=== PATIENT | male | born 1975 | race Caucasian/White ===

== ENCOUNTER 2022-01-30 01:41 | Inpatient (IN) | payer OTHER, SELFPAY ==
[2022-01-30 01:46] VITALS: BP 156/97; PULSE 82; RESP 18; TEMP 36.8; O2SAT 98; BMI 25.8
[2022-01-30 02:22] LABS: Appearance Urine CLEAR; Color Urine YELLOW; Glucose Urine UA NEG (NEG); Leukocyte Esterase Urine NEG (NEG); Nitrite Urine NEG (NEG); Urine Blood NEG (NEG); Urine Ketones NEG (NEG); Urine Protein NEG (NEG-TRACE)
[2022-01-30 02:38] LABS: COVID-19 Test Negative (Negative)
[2022-01-30 02:46] LABS: Amphetamine Screen Urine Not Detected (Not Detect); Barbiturates, Urine Not Detected (Not Detect); Benzodiazepines Screen Urine Not Detected (Not Detect); Cannabinoid Screen Urine POSITIVE (Not Detect); Cocaine Screen Urine POSITIVE (Not Detect); Fentanyl, urine POSITIVE (Not Detect); Opiate Screen Urine Not Detected (Not Detect); Phencyclidine Screen Urine Not Detected (Not Detect)
--- NOTE | 2022-01-30 03:54 | ED_ITS ---
HPI - Psych General Chief Complaint: Psychiatric Symptoms Stated Complaint: CRISIS Time Seen by Provider: 01/30/22 03:54 Source: patient Mode of arrival: EMS History of Present Illness HPI Narrative: 46-year-old male with history depression and recently admitted to [facility] now presents via ambulance with complaints of depression and feelings of hopelessness but denies suicidal or homicidal ideation and also denies any AVH. Currently patient has no acute medical complaints. Related Data Allergies Allergy/AdvReac Type Severity Reaction Status Date / Time trazodone Allergy Intermediate Rash Verified 01/30/22 01:55 Review of Systems Review of Systems: Pertinent positives and negatives as stated in HPI 10 point review of systems is otherwise negative. PMFSH Past Medical History Source: nursing notes reviewed Social History Social History Advance Directives: No Physical Exam Vital Signs: Vital Signs: Last Vital Signs Temp 98.3 F 01/30/22 01:46 Pulse 82 01/30/22 01:46 Resp 18 01/30/22 01:46 BP 156/97 H 01/30/22 01:46 Pulse Ox 98 01/30/22 01:46 BMI result Body Mass Index 25.8 VITAL SIGNS: Reviewed. GENERAL: Well developed, well nourished, in no acute distress. HEAD: Normocephalic/atraumatic EYES: PERRLA, EOMI EARS: Ext canals without abnormality OROPHARYNX: no oral lesions noted, posterior pharynx clear LUNGS: Normal breath sounds. No adventitious sounds or accessory muscle use. SpO2<98> CARDIOVASCULAR: Regular rate and rhythm without noted murmurs ABDOMEN: Soft, non-tender, non-distended with bowel sounds. MUSCULOSKELETAL: No tenderness, deformities, or effusions noted on gross inspection. EXTREMITIES: No cyanosis, clubbing or edema. SKIN: Inspection of the skin reveals no rashes NEUROLOGIC: Alert and oriented x 4. Strength and sensation to light touch were grossly intact x 4, cranial nerves 2-12 are grossly intact. PSYCH: Depressive affect, calm Course Course Course Narrative: 46-year-old male with history and clinical presentation of depression and currently presents with same. No SI/HI and patient is otherwise medically cleared for further evaluation by the crisis team. Reevaluation(s) Reevaluation #1: Patient placed in physician observation because the patient needed more time for evaluation by the crisis team. At the time observation was started the patient's vital signs were stable, patient is alert and oriented, neuro: Nonfocal, CV RRR, lungs clear Time: 04:55 MDM - Psych Lab Data Labs: Lab Results 01/30/22 01/30/22 01/30/22 Range/Units 02:03 02:12 02:12 Urine Color YELLOW Urine Appearance CLEAR Urine pH 7.0 (5.0-8.0) Ur Specific [place] 1.020 (1.005-1.025) Urine Protein NEG (NEG-TRACE) MG/DL Urine Glucose (UA) NEG (NEG) MG/DL Urine Ketones NEG (NEG) MG/DL Urine Blood NEG (NEG) Urine Nitrite NEG (NEG) Ur Leukocyte Esterase NEG (NEG) Urine Opiates Screen Not Detected (Not Detect) Urine Fentanyl Screen POSITIVE H (Not Detect) Ur Barbiturates Screen Not Detected (Not Detect) Ur Phencyclidine Scrn Not Detected (Not Detect) Ur Amphetamines Screen Not Detected (Not Detect) U Benzodiazepines Scrn Not Detected (Not Detect) Urine Cocaine Screen POSITIVE H (Not Detect) U Marijuana (THC) Screen POSITIVE H (Not Detect) COVID-19 (JENNIFER) Negative (Negative) COVID-19 Clin Com See Note Discharge Plan Discharge Clinical Impression: Depression Patient Disposition: Still a Patient
--- NOTE | 2022-01-30 06:14 | PC.NURSE ---
Patient stayed up until 334 watching TV, appears sleeping since 334, no distress observed/reported, [facility]N referral completed/confirmed, pending evaluation in the morning, VSS, will continue to monitor
--- NOTE | 2022-01-30 07:07 | PC.NURSE ---
patient appears to remain asleep at present respirations are even and unlabored patient appears in no distress
--- NOTE | 2022-01-30 10:09 | PC.NURSE ---
verifies clients methadone dose at [facility]. have tried three times to reach [facility] cannot get through to the psych unit. will continues to call.
[2022-01-30] MEDS: methADONE HCl 20 MG/2 ML ORAL.CONC 115 MG PO (11:14)
--- NOTE | 2022-01-30 15:00 | MHC.CARE ---
Patient evaluated by The CARE Team, he would benefit from inpatient psychiatric hospitalization, is voluntary for treatment. ED providers updated
[2022-01-30] MEDS: Melatonin 3 MG TABLET 9 MG PO (20:29)
[2022-01-30] MEDS: Mirtazapine 15 MG TABLET PO (20:29)
--- NOTE | 2022-01-31 | ECG_ITS ---
Test Reason : MED CLEARANCE Blood Pressure : / mmHG Vent. Rate : 054 BPM Atrial Rate : 054 BPM P-R Int : 140 ms QRS Dur : 088 ms QT Int : 452 ms P-R-T Axes : 051 -09 009 degrees QTc Int : 428 ms Sinus bradycardia Otherwise normal ECG No previous ECGs available Referred By: Patricia Wallace Electronically Signed By:PAM WATTERS MD
--- NOTE | 2022-01-31 06:06 | PC.NURSE ---
Patient slept though the night, no distress observed/reported, behavior non concerning at this time, medication compliant, disposition per care team is voluntary Inpatient Bed search but due to insurance issues patient will be reassessed by care team in the morning, VSS, will continue to monitor.
[2022-01-31 06:36] VITALS: BP 136/79; PULSE 56; TEMP 36.6; O2SAT 98
--- NOTE | 2022-01-31 07:06 | PC.NURSE ---
patient appears to remain asleep at present respirations are even and unlabored patient appears in no distress
[2022-01-31] MEDS: ARIPiprazole 2 MG TABLET PO (07:54)
[2022-01-31] MEDS: methADONE HCl 20 MG/2 ML ORAL.CONC 115 MG PO (07:55)
--- NOTE | 2022-01-31 09:15 | MHC.CARE ---
CARE Team contacts Arlette to cancel his 1530 appointment for this date due to his inpatient admission. [facility] advises CARE Team to have pt contact them to reschedule the appointment. Arlette .
[2022-01-31] MEDS: hydrOXYzine HCL 50 MG TABLET PO ×2 (10:19→17:12)
[2022-01-31] MEDS: Nicotine Polacrilex 2 MG GUM BUCCAL ×2 (11:29→17:13)
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
[2022-01-31] MEDS: Mirtazapine 30 MG TABLET PO (20:02)
[2022-01-31] MEDS: Melatonin 3 MG TABLET 9 MG PO (20:02)
[2022-01-31 20:24] VITALS: BP 135/64; PULSE 69; RESP 17; TEMP 36.3; O2SAT 97
[2022-02-01 06:00] VITALS: BP 134/66; PULSE 62; RESP 18; TEMP 36.5; O2SAT 98
[2022-02-01] MEDS: ARIPiprazole 2 MG TABLET PO (08:22)
[2022-02-01] MEDS: methADONE HCl 20 MG/2 ML ORAL.CONC 115 MG PO (08:22)
[2022-02-01] MEDS: hydrOXYzine HCL 50 MG TABLET PO ×2 (08:22→12:37)
[2022-02-01 08:34] LABS: Estimated Average Glucose 105 mg/dL; Hemoglobin A1c % 5.3 %
[2022-02-01 08:40] LABS: Alanine Aminotransferase 87 U/L (0-40); Albumin Level 3.9 g/dL (3.5-5.0); Alkaline Phosphatase 84 U/L (39-117); Anion Gap 12 (12-20); Aspartate Amino Transferase 49 U/L (5-37); Bilirubin Total 0.6 mg/dL (0.0-1.0); Blood Urea Nitrogen 17 mg/dL (9-16); Calcium 9.5 mg/dL (8.4-10.2); Carbon Dioxide 31 mmol/L (22-29); Chloride 102 mmol/L (96-108); Cholesterol 185 mg/dL; Creatinine Clr Calc Pharmacy 100.3; Estimated Glomerular Filt Rate > 60; Glucose Fasting 76 mg/dL (60-99); HDL Cholesterol 43 mg/dL; LDL Cholesterol Calculated 117 mg/dl; Magnesium 2.2 mg/dL (1.6-2.6); Potassium 4.7 mmol/L (3.3-5.1); Sodium 140 mmol/L (135-145); Total Protein 6.5 g/dL (6.5-8.0); Triglycerides 127 mg/dL
[2022-02-01 09:06] LABS: Free T4 (Free Thyroxine) 0.97 ng/dL (0.71-1.85); Thyroid Stimulating Hormone 2.32 uIU/mL (0.32-4.0)
--- NOTE | 2022-02-01 10:32 | HO.PSYCHPN ---
Subjective Subjective Date of Service: 02/01/22 Reason For Visit: Depression Opiate Use D/O Methadone Maintenance Pt Interim History: Patient reports that he is very anxious. But overall feels a little better than on admission and denies any SI. He is grateful that his mirtazapine was increased. He says the Trileptal helped him in the past and would like to restarted now. Patient asks for clonazepam 1 mg at bedtime since he says has a very hard time sleeping. Patient said that he will fall asleep but at some point suddenly wake up, often feeling sweaty and anxious, though he does not remember any specific nightmares. Patient shared a very long history of trauma dating back to childhood which is clearly severe. Patient says he used to be on clonazepam 4 mg daily but got off it 5 years ago. He has not been on medication for the past several years just using cannabis instead. Patient was at 1st upset that bid writer wanted to find alternative to clonazepam however he was able to calm down and listen to bid writer's explanation of how clonazepam can worsen and prolonged PTSD symptoms. It seemed to be meaningful to patient that bid writer's perspective was independent of patient's history of substance abuse and that this would be bid writer's opinion on treatment even for someone who had never struggled with substance abuse in their life. Patient agreed to trying prazosin at bedtime for nightmares and bid writer agreed to added clonazepam 0.5 mg p.r.n. while patient was on the unit however explained that patient would not provide outpt scripts for this since clonazepam is a temporary measure being used while his other medications are taking time to become therapeutic. Patient agreed to this and understood that given his substance abuse history it will be important for him to develop a relationship with an outpatient provider Mental Status Exam Mental Status Exam Narrative: Pt is alert and oriented; behavior is irritable; dressed in casual attire, well groomed; mood is described as little better....anxious and affect congruent, angry or tearful at times; eye contact appropriate; Speech is a little fast, but normal volume and prosody and not pressured; some psychomotor agitation present; thought process is organized and goal directed; Thought content is on tx; otherwise pertinent to relevant topics and without any delusional content, paranoid ideations or grandiosity; denies any SI/HI. There is no evidence of perceptual disturbance and he denies AVH. Patients insight and judgment are impaired. Diagnostics Vital Signs (24Hr): Vital Signs - 24 hr 01/31/22 20:24 02/01/22 06:00 Temperature 97.3 F 97.7 F Pulse Rate 69 62 Respiratory Rate 17 18 Blood Pressure 135/64 134/66 Pulse Oximetry 97 98 BMI result Body Mass Index 25.8 Labs Results: 02/01/22 07:44 Labs: Laboratory Results - last 48 hr 02/01/22 02/01/22 07:44 07:44 Sodium 140 Potassium 4.7 Chloride 102 Carbon Dioxide 31 H Anion Gap 12 BUN 17 H Creatinine 0.91 Estim Creat Clear Calc 100.3 Estimated GFR > 60 Fasting Glucose 76 Estimat Average Glucose 105 Hemoglobin A1c % 5.3 Calcium 9.5 Magnesium 2.2 Total Bilirubin 0.6 AST 49 H ALT 87 H Alkaline Phosphatase 84 Total Protein 6.5 Albumin 3.9 Triglycerides 127 Cholesterol 185 LDL Cholesterol, Calc 117 HDL Cholesterol 43 TSH 2.32 Free T4 0.97 Medications Medications Current Medications Acetaminophen (Acetaminophen 325 Mg Tablet) 650 mg PO Q6H PRN PRN Reason: Headache/Pain Mild Scale (1-3) Al Hydroxide/Mg Hydroxide (Magnesium Hydrox/Alum Hydrox 30 Ml Oral.Susp) 30 ml PO Q6H PRN PRN Reason: Heartburn/Nausea Aripiprazole (Aripiprazole 2 Mg Tablet) 2 mg PO DAILY [facility] Last Admin: 02/01/22 08:22 Dose: 2 mg Documented by: Hydroxyzine HCl (Hydroxyzine Hcl 50 Mg Tablet) 50 mg PO TID PRN PRN Reason: Anxiety Last Admin: 02/01/22 08:22 Dose: 50 mg Documented by: Magnesium Hydroxide (Milk Of Magnesia 30 Ml Oral.Susp) 30 ml PO DAILY PRN PRN Reason: Constipation Melatonin (Melatonin 3 Mg Tablet) 9 mg PO BEDTIME [facility] Last Admin: 01/31/22 20:02 Dose: 9 mg Documented by: Methadone HCl (Methadone Hcl 20 Mg/2 Ml Oral.Conc) 115 mg PO DAILY [facility] Last Admin: 02/01/22 08:22 Dose: 115 mg Documented by: Mirtazapine (Mirtazapine 30 Mg Tablet) 30 mg PO BEDTIME [facility] Last Admin: 01/31/22 20:02 Dose: 30 mg Documented by: Nicotine Polacrilex (Nicotine Polacrilex 2 Mg Gum) 2 mg BUCCAL Q2H PRN PRN Reason: Nicotine Cravings Allergies Allergies Allergy/AdvReac Type Severity Reaction Status Date / Time trazodone Allergy Intermediate Rash Verified 01/30/22 01:55 Assessment & Plan Assessment & Plan (1) Cocaine use disorder: Status: Acute Code(s): F14.10 - Cocaine abuse, uncomplicated (2) Post traumatic stress disorder (PTSD): Status: Acute Code(s): F43.10 - Post-traumatic stress disorder, unspecified Plan Deng is a 46 y.o. male who carries a dx of PTSD, polysubstance abuse, and hx of intermittent explosive disorder. He presented to [facility] on 01/30/22 reporting increased depression, recently admitted to [facility] on 01/24/22. Per crisis eval, pt made passive SI statements during assessment. Precipitating fx include that pt is currently homeless, had a recent breakup with gf, and has hx of frequent relapses on crack cocaine. He has been non-adherent on medication x 2 days. Utox positive for cocaine, fentanyl, and cannabis. EKG wnl, Qtc 428. -placed addiction consult, as pt would like to increase his methadone dose for cravings. Pt states ?what worked really well is klonopin,? asks for a low dose at bedtime. Pt is interested in obtaining residential LEYDI treatment. He is also interested in tx for Hep C. 02/01 patient reports much anxiety; wants clonazepam at bedtime only however is open to trying prazosin 1st to see if that helps with sleep interrupted by history of trauma, which is severe. Will also start Trileptal since he reports this has helped him in the past. Plan: . cv Start prazosin 1 mg q.h.s. for nightmares Start Trileptal 300 mg b.i.d. Will continue Abilify 2 mg daily was added at last hospitalization last week increased remeron to 30mg qhs Packaging Machine Operator agreed to clonazepam 0.5 mg p.r.n. b.i.d. since patient reports much anxiety and bid writer acknowledges that it will take some time for his medications to become therapeutic; however bid writer explained the risks/side effects of benzos and that this patient would not be continued on discharge to which patient understood and accepts. Q15 min safety checks, CV Monitor response to medications. Monitor for safety in the milieu. Discharge on stabilization. Patient seen. Chart reviewed. Discussed with team. Obtain collateral contact info?as needed I spent minutes with the patient and/or on the patient floor today, greater than?50% of which was spent counseling/coordinating care. Patient educated on: diagnosis, medication risk/benefits, substance abuse and therapeutic strategies Reason for contiued inpatient stay Substantial Risk for: rapid decompensation
[2022-02-01 12:36] LABS: Folate 13.6 ng/mL (> or = 4.0); Vitamin B12 503 pg/mL (200-900)
[2022-02-01] MEDS: Nicotine Polacrilex 2 MG GUM BUCCAL (14:05)
[2022-02-01] MEDS: clonazePAM 0.5 MG TABLET PO ×2 (16:09→16:58)
[2022-02-01 18:00] VITALS: BP 120/69; PULSE 92; RESP 16; TEMP 36; O2SAT 97
[2022-02-01] MEDS: Melatonin 3 MG TABLET 9 MG PO (20:30)
[2022-02-01] MEDS: Mirtazapine 30 MG TABLET PO (20:32)
[2022-02-01] MEDS: OXcarbazepine 300 MG TABLET PO (20:33)
[2022-02-01] MEDS: Prazosin HCL 1 MG CAPSULE PO (20:33)
[2022-02-02 06:00] VITALS: BP 136/81; PULSE 66; RESP 16; TEMP 36.2; O2SAT 99
[2022-02-02] MEDS: ARIPiprazole 2 MG TABLET PO (08:33)
[2022-02-02] MEDS: methADONE HCl 20 MG/2 ML ORAL.CONC 115 MG PO (08:33)
[2022-02-02] MEDS: Nicotine Polacrilex 2 MG GUM BUCCAL ×2 (08:33→15:20)
[2022-02-02] MEDS: OXcarbazepine 300 MG TABLET PO ×2 (08:33→19:48)
[2022-02-02] MEDS: clonazePAM 0.5 MG TABLET PO ×2 (09:54→19:47)
[2022-02-02] MEDS: hydrOXYzine HCL 50 MG TABLET PO ×3 (09:54→19:47)
[2022-02-02 18:00] VITALS: BP 119/68; PULSE 85; RESP 16; TEMP 36.4; O2SAT 98
[2022-02-02] MEDS: Melatonin 3 MG TABLET 9 MG PO (19:47)
[2022-02-02] MEDS: Mirtazapine 30 MG TABLET PO (19:47)
[2022-02-02] MEDS: Prazosin HCL 1 MG CAPSULE PO (19:48)
--- NOTE | 2022-02-02 23:21 | HO.PSYCHPN ---
Subjective Subjective Date of Service: 02/02/22 Reason For Visit: Depression Opiate Use D/O Methadone Maintenance Pt Interim History: Patient reports that his mood and anxiety are better. He says that he slept well on the prazosin last night and did not wake up suddenly from sleep, feeling much better rested. He shared that he was earlier thinking he should increase his methadone but says that was just to help his mood and now that he is feeling better does not want to increase it any further. Patient denies any SI. Furnace Room Supervisor discussed his history of sobriety and patient said that he was sober for about 2 and half years. Resist this past month when he relapsed, citing psychosocial stressors such as breaking up with his girlfriend and quitting cannabis. Patient feels that medications are working at current doses and does not want them changed. He does want to get back into therapy post discharge saying that he had been in therapy in the past which he found very helpful. Mental Status Exam Mental Status Exam Narrative: Pt is alert and oriented; behavior is irritable; dressed in casual attire, well groomed; mood is described as better and affect congruent, brighter, calmer; eye contact appropriate; Speech with normal rate, volume and prosody and not pressured; no psychomotor agitation present; thought process is organized and goal directed; Thought content is on tx; otherwise pertinent to relevant topics and without any delusional content, paranoid ideations or grandiosity; denies any SI/HI. There is no evidence of perceptual disturbance and he denies AVH.? Patients insight and judgment are impaired but improving Diagnostics Vital Signs (24Hr): Vital Signs - 24 hr 02/02/22 06:00 Temperature 97.2 F Pulse Rate 66 Respiratory Rate 16 Blood Pressure 136/81 Pulse Oximetry 99 BMI result Body Mass Index 25.8 Labs Results: 02/01/22 07:44 Labs: Laboratory Results - last 48 hr 02/01/22 02/01/22 02/01/22 07:44 07:44 07:44 Sodium 140 Potassium 4.7 Chloride 102 Carbon Dioxide 31 H Anion Gap 12 BUN 17 H Creatinine 0.91 Estim Creat Clear Calc 100.3 Estimated GFR > 60 Fasting Glucose 76 Estimat Average Glucose 105 Hemoglobin A1c % 5.3 Calcium 9.5 Magnesium 2.2 Total Bilirubin 0.6 AST 49 H ALT 87 H Alkaline Phosphatase 84 Total Protein 6.5 Albumin 3.9 Triglycerides 127 Cholesterol 185 LDL Cholesterol, Calc 117 HDL Cholesterol 43 Vitamin B12 503 Folate 13.6 TSH 2.32 Free T4 0.97 Medications Medications Current Medications Acetaminophen (Acetaminophen 325 Mg Tablet) 650 mg PO Q6H PRN PRN Reason: Headache/Pain Mild Scale (1-3) Al Hydroxide/Mg Hydroxide (Magnesium Hydrox/Alum Hydrox 30 Ml Oral.Susp) 30 ml PO Q6H PRN PRN Reason: Heartburn/Nausea Aripiprazole (Aripiprazole 2 Mg Tablet) 2 mg PO DAILY [facility] Last Admin: 02/02/22 08:33 Dose: 2 mg Documented by: Clonazepam (Clonazepam 0.5 Mg Tablet) 0.5 mg PO BID PRN PRN Reason: Anxiety Last Admin: 02/02/22 19:47 Dose: 0.5 mg Documented by: Hydroxyzine HCl (Hydroxyzine Hcl 50 Mg Tablet) 50 mg PO TID PRN PRN Reason: Anxiety Last Admin: 02/02/22 19:47 Dose: 50 mg Documented by: Magnesium Hydroxide (Milk Of Magnesia 30 Ml Oral.Susp) 30 ml PO DAILY PRN PRN Reason: Constipation Melatonin (Melatonin 3 Mg Tablet) 9 mg PO BEDTIME TITO Last Admin: 02/02/22 19:47 Dose: 9 mg Documented by: Methadone HCl (Methadone Hcl 20 Mg/2 Ml Oral.Conc) 115 mg PO DAILY [facility] Last Admin: 02/02/22 08:33 Dose: 115 mg Documented by: Mirtazapine (Mirtazapine 30 Mg Tablet) 30 mg PO BEDTIME TITO Last Admin: 02/02/22 19:47 Dose: 30 mg Documented by: Nicotine Polacrilex (Nicotine Polacrilex 2 Mg Gum) 2 mg BUCCAL Q2H PRN PRN Reason: Nicotine Cravings Last Admin: 02/02/22 15:20 Dose: 2 mg Documented by: Oxcarbazepine (Oxcarbazepine 300 Mg Tablet) 300 mg PO BID [facility] Last Admin: 02/02/22 19:48 Dose: 300 mg Documented by: Prazosin HCl (Prazosin Hcl 1 Mg Capsule) 1 mg PO BEDTIME TITO; Protocol Last Admin: 02/02/22 19:48 Dose: 1 mg Documented by: Allergies Allergies Allergy/AdvReac Type Severity Reaction Status Date / Time trazodone AdvReac Intermediate Priaprism Verified 02/01/22 14:41 Assessment & Plan Assessment & Plan (1) Cocaine use disorder: Status: Acute Code(s): F14.10 - Cocaine abuse, uncomplicated (2) Post traumatic stress disorder (PTSD): Status: Acute Code(s): F43.10 - Post-traumatic stress disorder, unspecified Plan Deng is a 46 y.o. male who carries a dx of PTSD, polysubstance abuse, and hx of intermittent explosive disorder. He presented to [facility] on 01/30/22 reporting increased depression, recently admitted to [facility] on 01/24/22. Per crisis eval, pt made passive SI statements during assessment. Precipitating fx include that pt is currently homeless, had a recent breakup with gf, and has hx of frequent relapses on crack cocaine. He has been non-adherent on medication x 2 days. Utox positive for cocaine, fentanyl, and cannabis. EKG wnl, Qtc 428. -placed addiction consult, as pt would like to increase his methadone dose for cravings. Pt states ?what worked really well is klonopin,? asks for a low dose at bedtime. Pt is interested in obtaining [facility] treatment. He is also interested in tx for Hep C. 02/01 patient reports much anxiety; wants clonazepam at bedtime only however is open to trying prazosin 1st to see if that helps with sleep interrupted by history of trauma, which is severe. Will also start Trileptal since he reports this has helped him in the past. 02/02 Patient reports mood and anxiety have improved; denies any SI. Patient says he also slept better with prazosin and did not wake up suddenly or diaphoretic which has frequently happened in the past Plan: . cv Continue prazosin 1 mg q.h.s. for nightmares; has helped improve sleep ContinueTrileptal 300 mg b.i.d. continue Abilify 2 mg daily was added at last hospitalization last week Continueremeron to 30mg qhs (increased on admission) Furnace Room Supervisor agreed to clonazepam 0.5 mg p.r.n. b.i.d. since patient reports much anxiety and advertising copy writer acknowledges that it will take some time for his medications to become therapeutic; however advertising copy writer explained the risks/side effects of benzos and that this patient would not be continued on discharge to which patient understood and accepts. Q15 min safety checks, CV Monitor response to medications. Monitor for safety in the milieu. Discharge on stabilization. Patient seen. Chart reviewed. Discussed with team. Obtain collateral contact info?as needed I spent minutes with the patient and/or on the patient floor today, greater than?50% of which was spent counseling/coordinating care. Patient educated on: diagnosis, substance abuse and therapeutic strategies Informed Consent: understands Reason for contiued inpatient stay Substantial Risk for: rapid decompensation
[2022-02-03 06:00] VITALS: BP 131/59; PULSE 65; RESP 18; TEMP 36.7; O2SAT 98
[2022-02-03] MEDS: methADONE HCl 20 MG/2 ML ORAL.CONC 115 MG PO (08:28)
[2022-02-03] MEDS: OXcarbazepine 300 MG TABLET PO ×2 (08:28→20:27)
[2022-02-03] MEDS: ARIPiprazole 2 MG TABLET PO (08:28)
[2022-02-03] MEDS: hydrOXYzine HCL 50 MG TABLET PO ×2 (11:00→15:50)
[2022-02-03] MEDS: Nicotine Polacrilex 2 MG GUM BUCCAL (14:04)
[2022-02-03] MEDS: clonazePAM 0.5 MG TABLET PO ×4 (14:42→20:27)
[2022-02-03 18:00] VITALS: BP 125/83; PULSE 79; TEMP 36.3; O2SAT 98
[2022-02-03] MEDS: Mirtazapine 30 MG TABLET PO (20:26)
[2022-02-03] MEDS: Melatonin 3 MG TABLET 9 MG PO (20:27)
[2022-02-03] MEDS: Prazosin HCL 1 MG CAPSULE PO (20:27)
[2022-02-04 06:00] VITALS: BP 128/85; PULSE 72; RESP 18; TEMP 36.5; O2SAT 99
[2022-02-04] MEDS: methADONE HCl 20 MG/2 ML ORAL.CONC 115 MG PO (07:54)
[2022-02-04] MEDS: OXcarbazepine 300 MG TABLET PO ×3 (07:55→12:23)
[2022-02-04] MEDS: ARIPiprazole 2 MG TABLET PO ×2 (07:55→08:14)
--- NOTE | 2022-02-04 12:07 | P.PNPSI_ITS ---
Subjective Subjective Date of Service: 02/04/22 Reason For Visit: Depression Opiate Use D/O Methadone Maintenance Pt Interim History: pt reports his mood is better and remains w/out SI; he still has anxiety that seems to build and he says he eventually gets irritable which he's worried gets tranlated or perceived as aggression. Pt says he autumn by trying to busy himself, puzzles, groups and tries to hold off taking clonazepam, building his coping skill muscle...radio news writer reviewed risks/side-effects of Oxcarbazepine and he agrees to increase bedtime dose and says he was on 1200mg in the past. Review of abilify risks/side-effects prompted pt to ask it be discontinued. Pt says sleeping better on prazosin, no sudden wake ups. He was accidently given Adderall yesterday (med error), but found it calming. Discussed hx and pt was dx with ADD as child and was prescribed ritalin. Pt endorses numerous symptoms of adhd. Online Merchant agreed to trial of this med while on unit and pt understands that it will not be continued on discharge. Discussed aftercare; pt hopes for sober housing. Mental Status Exam Mental Status Exam Narrative: Pt is alert and oriented; behavior is irritable; dressed in casual attire, well groomed; mood is described as better and affect congruent, brighter, calmer; eye contact appropriate; Speech with normal rate, volume and prosody and not pressured; no psychomotor agitation present; thought process is organized and goal directed; Thought content is on tx; otherwise pertinent to relevant topics and without any delusional content, paranoid ideations or grandiosity; denies any SI/HI. There is no evidence of perceptual disturbance and he denies AVH.? Patients insight and judgment are fair. Diagnostics Vital Signs (24Hr): Vital Signs - 24 hr 02/03/22 18:00 02/04/22 06:00 Temperature 97.4 F 97.7 F Pulse Rate 79 72 Respiratory Rate 18 Blood Pressure 125/83 128/85 Pulse Oximetry 98 99 BMI result Body Mass Index 25.8 Labs Results: 02/01/22 07:44 Medications Medications Current Medications Acetaminophen (Acetaminophen 325 Mg Tablet) 650 mg PO Q6H PRN PRN Reason: Headache/Pain Mild Scale (1-3) Al Hydroxide/Mg Hydroxide (Magnesium Hydrox/Alum Hydrox 30 Ml Oral.Susp) 30 ml PO Q6H PRN PRN Reason: Heartburn/Nausea Amphetamine/Dextroamphetamine (Amphetamine Mixed Salts 10 Mg Tablet) 10 mg PO DAILY [facility] Clonazepam (Clonazepam 0.5 Mg Tablet) 0.5 mg PO BID PRN PRN Reason: Anxiety Last Admin: 02/03/22 20:27 Dose: 0.5 mg Documented by: Hydroxyzine HCl (Hydroxyzine Hcl 50 Mg Tablet) 50 mg PO TID PRN PRN Reason: Anxiety Last Admin: 02/03/22 15:50 Dose: 50 mg Documented by: Magnesium Hydroxide (Milk Of Magnesia 30 Ml Oral.Susp) 30 ml PO DAILY PRN PRN Reason: Constipation Melatonin (Melatonin 3 Mg Tablet) 9 mg PO BEDTIME TITO Last Admin: 02/03/22 20:27 Dose: 9 mg Documented by: Methadone HCl (Methadone Hcl 20 Mg/2 Ml Oral.Conc) 115 mg PO DAILY [facility] Last Admin: 02/04/22 07:54 Dose: 115 mg Documented by: Mirtazapine (Mirtazapine 30 Mg Tablet) 30 mg PO BEDTIME TITO Last Admin: 02/03/22 20:26 Dose: 30 mg Documented by: Nicotine Polacrilex (Nicotine Polacrilex 2 Mg Gum) 2 mg BUCCAL Q2H PRN PRN Reason: Nicotine Cravings Last Admin: 02/03/22 14:04 Dose: 2 mg Documented by: Oxcarbazepine (Oxcarbazepine 300 Mg Tablet) 300 mg PO DAILY [facility] Oxcarbazepine (Oxcarbazepine 300 Mg Tablet) 600 mg PO DAILY [facility] Prazosin HCl (Prazosin Hcl 1 Mg Capsule) 1 mg PO BEDTIME TITO; Protocol Last Admin: 02/03/22 20:27 Dose: 1 mg Documented by: Allergies Allergies Allergy/AdvReac Type Severity Reaction Status Date / Time trazodone AdvReac Intermediate Priaprism Verified 02/01/22 14:41 Assessment & Plan Assessment & Plan (1) Cocaine use disorder: Status: Acute Code(s): F14.10 - Cocaine abuse, uncomplicated (2) Post traumatic stress disorder (PTSD): Status: Acute Code(s): F43.10 - Post-traumatic stress disorder, unspecified Plan Deng is a 46 y.o. male who carries a dx of PTSD, polysubstance abuse, and hx of intermittent explosive disorder. He presented to [facility] on 01/30/22 reporting increased depression, recently admitted to [facility] on 01/24/22. Per crisis eval, pt made passive SI statements during assessment. Precipitating fx include that pt is currently homeless, had a recent breakup with gf, and has hx of frequent relapses on crack cocaine. He has been non-adherent on medication x 2 days. Utox positive for cocaine, fentanyl, and cannabis. EKG wnl, Qtc 428. -placed addiction consult, as pt would like to increase his methadone dose for cravings. Pt states ?what worked really well is klonopin,? asks for a low dose at bedtime. Pt is interested in obtaining senior living [facility] treatment. He is also interested in tx for Hep C. 02/01 patient reports much anxiety; wants clonazepam at bedtime only however is open to trying prazosin 1st to see if that helps with sleep interrupted by history of trauma, which is severe. Will also start Trileptal since he reports this has helped him in the past. 02/02 Patient reports mood and anxiety have improved; denies any SI. Patient says he also slept better with prazosin and did not wake up suddenly or diaphoretic which has frequently happened in the past -mood remains improved; still anxious and irritable so will increase trileptal Plan: . cv trial of Adderall; hx of ADHD; helps with impulsiveness which can reduce risk to relapse; will not give on discharge which pt accepts Continue prazosin 1 mg q.h.s. for nightmares; has helped improve sleep contninue Trileptal to 300 mg daily INcrease to Trileptal to 600mg qhs DC Abilify 2 mg daily does not like side-effect profile; low dose unlikely to make significantly clinical difference Continuer emeron to 30mg qhs (increased on admission) Online Merchant agreed to clonazepam 0.5 mg p.r.n. b.i.d. since patient reports much anx iety and radio news writer acknowledges that it will take some time for his medications to become therapeutic; however radio news writer explained the risks/side effects of benzos and that this patient would not be continued on discharge to which patient understood and accepts. Q15 min safety checks, CV Monitor response to medications. Monitor for safety in the milieu. Discharge on stabilization. Patient seen. Chart reviewed. Discussed with team. Obtain collateral contact info?as needed I spent minutes with the patient and/or on the patient floor today, greater than?50% of which was spent counseling/coordinating care. Patient educated on: diagnosis, medication risk/benefits, substance abuse and therapeutic strategies Informed Consent: understands Reason for contiued inpatient stay Substantial Risk for: med/psych decompensation
[2022-02-04] MEDS: Amphetamine Mixed Salts 10 MG TABLET PO (12:23)
[2022-02-04] MEDS: OXcarbazepine 300 MG TABLET 600 MG PO (12:24)
[2022-02-04] MEDS: clonazePAM 0.5 MG TABLET PO ×2 (12:30→20:32)
[2022-02-04 20:25] VITALS: BP 136/90; PULSE 89; TEMP 36.9; O2SAT 98
[2022-02-04] MEDS: Prazosin HCL 1 MG CAPSULE PO (20:31)
[2022-02-04] MEDS: Melatonin 3 MG TABLET 9 MG PO (20:31)
[2022-02-04] MEDS: Mirtazapine 30 MG TABLET PO (20:31)
[2022-02-05 06:00] VITALS: BP 126/84; PULSE 76; RESP 18; TEMP 36.6; O2SAT 98
[2022-02-05] MEDS: clonazePAM 0.5 MG TABLET PO ×2 (08:26→12:51)
[2022-02-05] MEDS: Amphetamine Mixed Salts 10 MG TABLET PO (08:27)
[2022-02-05] MEDS: methADONE HCl 20 MG/2 ML ORAL.CONC 115 MG PO (08:28)
[2022-02-05] MEDS: hydrOXYzine HCL 50 MG TABLET PO ×2 (08:28→12:51)
[2022-02-05 08:41] LABS: MANUAL DIFF FLAG NO
[2022-02-05 08:47] LABS: Basophils Absolute Auto 0.1 X10*3/uL (0.0-0.2); Basophils Percent Auto 0.7 % (0-2); Eosinophils Absolute Auto 0.2 X10*3/uL (0.0-0.4); Eosinophils Percent Auto 2.7 % (0-4); Hematocrit 43.9 % (42.0-52.0); Hemoglobin 14.3 g/dl (14.0-18.0); Imm Gran Abs Auto 0.03 X10*3/uL (0.00-0.03); Imm Gran Pct Auto 0.4 % (0.0-0.4); Lymphocytes Absolute Auto 2.9 X10*3/uL (1.2-4.9); Lymphocytes Percent Auto 39.8 % (20-40); Mean Corpuscular HGB Conc 32.6 g/dl (31.0-36.0); Mean Platelet Volume 8.6 fL (9.4-12.4); Monocytes Absolute Auto 0.7 X10*3/uL (0.1-1.2); Monocytes Percent Auto 8.9 % (2-11); Neutrophils Absolute Auto 3.5 x10*3/uL (2.0-8.3); Neutrophils Percent Auto 47.5 % (45-73); Platelet Count 243 X10*3/uL (160-400); Red Blood Count 4.93 X10*6/uL (4.60-5.80); Red Cell Distribution Width 13.6 % (11.0-16.0); White Blood Count 7.3 X10*3/uL (4.8-10.8)
[2022-02-05] MEDS: OXcarbazepine 300 MG TABLET PO (09:16)
[2022-02-05 09:38] LABS: Anion Gap 13 (12-20); Carbon Dioxide 28 mmol/L (22-29); Chloride 103 mmol/L (96-108); Potassium 4.6 mmol/L (3.3-5.1); Sodium 139 mmol/L (135-145)
--- NOTE | 2022-02-05 12:15 | HO.PSYCHPN ---
Subjective Subjective Date of Service: 02/05/22 Reason For Visit: Depression Opiate Use D/O Methadone Maintenance Pt Interim History: pt discussed interaction with nursing today who stopped him from unraveling his sock; pt explained how he was making a craft out of the string (pt has many well constructed craft projects going on) and his feelings were hurt, taking it personally since he can fathom no way that such a string could be used as a ligature (he demonstrates its fragility). Pt open w/ feelings and says he has a hx of taking things personally even when it's not; pt was able to understand the unit policy and that her application of the rule was not personal, however he wishes the nurse approached him about it differently. Pt continues to report he's using coping skills to delay taking clonazepam 0.5mg which he says is working. He reports his mood remains overall better and w/out any SI; he is future oriented with plans to eventually get his own apartment; pt has calls into [employer] for housing and others. Mental Status Exam Mental Status Exam Narrative: Pt is alert and oriented; behavior is calm; dressed in casual attire, well groomed; mood is described as ok and affect congruent; eye contact appropriate; Speech with normal rate, volume and prosody and not pressured; no psychomotor agitation present; thought process is organized and goal directed; Thought content is on tx and aftercare; otherwise pertinent to relevant topics and without any delusional content, paranoid ideations or grandiosity; denies any SI/HI. There is no evidence of perceptual disturbance and he denies AVH.? Patients insight and judgment are fair. Diagnostics Vital Signs (24Hr): Vital Signs - 24 hr 02/04/22 20:25 02/05/22 06:00 Temperature 98.5 F 97.9 F Pulse Rate 89 76 Respiratory Rate 18 Blood Pressure 136/90 H 126/84 Pulse Oximetry 98 98 BMI result Body Mass Index 25.8 Labs Results: 02/05/22 08:31 02/05/22 08:31 Labs: Laboratory Results - last 48 hr 02/05/22 02/05/22 08:31 08:31 WBC 7.3 RBC 4.93 Hgb 14.3 Hct 43.9 MCV 89.0 MCH 29.0 MCHC 32.6 RDW 13.6 Plt Count 243 MPV 8.6 L Immature Gran % (Auto) 0.4 Neut % (Auto) 47.5 Lymph % (Auto) 39.8 [place] % (Auto) 8.9 Eos % (Auto) 2.7 Baso % (Auto) 0.7 Lymph # (Auto) 2.9 [place] # (Auto) 0.7 Eos # (Auto) 0.2 Baso # (Auto) 0.1 Abs Immat Gran (auto) 0.03 Absolute Neuts (auto) 3.5 Absolute Nucleated RBC 0.000 Nucleated RBC % (auto) 0.0 Sodium 139 Potassium 4.6 Chloride 103 Carbon Dioxide 28 Anion Gap 13 Medications Medications Current Medications Acetaminophen (Acetaminophen 325 Mg Tablet) 650 mg PO Q6H PRN PRN Reason: Headache/Pain Mild Scale (1-3) Al Hydroxide/Mg Hydroxide (Magnesium Hydrox/Alum Hydrox 30 Ml Oral.Susp) 30 ml PO Q6H PRN PRN Reason: Heartburn/Nausea Amphetamine/Dextroamphetamine (Amphetamine Mixed Salts 10 Mg Tablet) 10 mg PO DAILY [facility] Last Admin: 02/05/22 08:27 Dose: 10 mg Documented by: Clonazepam (Clonazepam 0.5 Mg Tablet) 0.5 mg PO BID PRN PRN Reason: Anxiety Last Admin: 02/05/22 08:26 Dose: 0.5 mg Documented by: Hydroxyzine HCl (Hydroxyzine Hcl 50 Mg Tablet) 50 mg PO TID PRN PRN Reason: Anxiety Last Admin: 02/05/22 08:28 Dose: 50 mg Documented by: Magnesium Hydroxide (Milk Of Magnesia 30 Ml Oral.Susp) 30 ml PO DAILY PRN PRN Reason: Constipation Melatonin (Melatonin 3 Mg Tablet) 9 mg PO BEDTIME [facility] Last Admin: 02/04/22 20:31 Dose: 9 mg Documented by: Methadone HCl (Methadone Hcl 20 Mg/2 Ml Oral.Conc) 115 mg PO DAILY [facility] Last Admin: 02/05/22 08:28 Dose: 115 mg Documented by: Mirtazapine (Mirtazapine 30 Mg Tablet) 30 mg PO BEDTIME [facility] Last Admin: 02/04/22 20:31 Dose: 30 mg Documented by: Nicotine Polacrilex (Nicotine Polacrilex 2 Mg Gum) 2 mg BUCCAL Q2H PRN PRN Reason: Nicotine Cravings Last Admin: 02/03/22 14:04 Dose: 2 mg Documented by: Oxcarbazepine (Oxcarbazepine 300 Mg Tablet) 300 mg PO DAILY [facility] Last Admin: 02/05/22 08:27 Dose: 300 mg Documented by: Oxcarbazepine (Oxcarbazepine 300 Mg Tablet) 600 mg PO BEDTIME TITO Prazosin HCl (Prazosin Hcl 1 Mg Capsule) 1 mg PO BEDTIME TITO; Protocol Last Admin: 02/04/22 20:31 Dose: 1 mg Documented by: Allergies Allergies Allergy/AdvReac Type Severity Reaction Status Date / Time trazodone AdvReac Intermediate Priaprism Verified 02/01/22 14:41 Assessment & Plan Assessment & Plan (1) Cocaine use disorder: Status: Acute Code(s): F14.10 - Cocaine abuse, uncomplicated (2) Post traumatic stress disorder (PTSD): Status: Acute Code(s): F43.10 - Post-traumatic stress disorder, unspecified Plan Deng is a 46 y.o. male who carries a dx of PTSD, polysubstance abuse, and hx of intermittent explosive disorder. He presented to [facility] on 01/30/22 reporting increased depression, recently admitted to [facility] on 01/24/22. Per crisis eval, pt made passive SI statements during assessment. Precipitating fx include that pt is currently homeless, had a recent breakup with gf, and has hx of frequent relapses on crack cocaine. He has been non-adherent on medication x 2 days. Utox positive for cocaine, fentanyl, and cannabis. EKG wnl, Qtc 428. -placed addiction consult, as pt would like to increase his methadone dose for cravings. Pt states ?what worked really well is klonopin,? asks for a low dose at bedtime. Pt is interested in obtaining manager long term care [facility] treatment. He is also interested in tx for Hep C. 02/01 patient reports much anxiety; wants clonazepam at bedtime only however is open to trying prazosin 1st to see if that helps with sleep interrupted by history of trauma, which is severe. Will also start Trileptal since he reports this has helped him in the past. 02/02 Patient reports mood and anxiety have improved; denies any SI. Patient says he also slept better with prazosin and did not wake up suddenly or diaphoretic which has frequently happened in the past -mood remains improved; still anxious and irritable so will increase trileptal 02/05 pt remains in overall good mood, no SI, anxiety better controlled, sleeping well and with plans for the future (to get an apartment; eventually to take some classes). Pt is currently looking for dispo options Plan: . cv trial of Adderall; hx of ADHD; helps with impulsiveness which can reduce risk to relapse; will not give on discharge which pt accepts Continue prazosin 1 mg q.h.s. for nightmares; has helped improve sleep contninue Trileptal to 300 mg daily INcrease to Trileptal to 600mg qhs DC Abilify 2 mg daily does not like side-effect profile; low dose unlikely to make significantly clinical difference Continuer emeron to 30mg qhs (increased on admission) Link Trainer Maintenance Man agreed to clonazepam 0.5 mg p.r.n. b.i.d. since patient reports much anxiety and show card writer acknowledges that it will take some time for his medications to become therapeutic; however show card writer explained the risks/side effects of benzos and that this patient would not be continued on discharge to which patient understood and accepts. Q15 min safety checks, CV Monitor response to medications. Monitor for safety in the milieu. Discharge on stabilization. Patient seen. Chart reviewed. Discussed with team. Obtain collateral contact info?as needed I spent minutes with the patient and/or on the patient floor today, greater than?50% of which was spent counseling/coordinating care. Patient educated on: diagnosis and therapeutic strategies Informed Consent: understands Reason for contiued inpatient stay Substantial Risk for: stable for discharge
--- NOTE | 2022-02-05 14:37 | PC.NURSE ---
Addendum entered by Brian Hudson RN 02/05/22 14:39: Patient was placed on 5 minute safety checks Original Note: Patient was seen in entryway kissing a female peer on the lips. Patients were redirected and educated on boundaries while on the unit. This patient says it was mutual and it wasn't forced upon him. Patient says he has known peer outside of hospital and redirected by Pharmaceutical Development Technician.
[2022-02-05 19:45] VITALS: BP 126/72; PULSE 75
[2022-02-05] MEDS: Melatonin 3 MG TABLET 9 MG PO (20:05)
[2022-02-05] MEDS: Prazosin HCL 1 MG CAPSULE PO (20:05)
[2022-02-05] MEDS: OXcarbazepine 300 MG TABLET 600 MG PO (20:05)
[2022-02-05] MEDS: Mirtazapine 30 MG TABLET PO (20:05)
[2022-02-06 06:00] VITALS: BP 129/87; PULSE 78; RESP 18; TEMP 36.5; O2SAT 99
[2022-02-06] MEDS: Amphetamine Mixed Salts 10 MG TABLET PO (08:58)
[2022-02-06] MEDS: methADONE HCl 20 MG/2 ML ORAL.CONC 115 MG PO (08:59)
[2022-02-06] MEDS: OXcarbazepine 300 MG TABLET PO (09:02)
[2022-02-06] MEDS: clonazePAM 0.5 MG TABLET PO ×3 (09:03→19:14)
[2022-02-06] MEDS: hydrOXYzine HCL 50 MG TABLET PO ×2 (10:40→20:02)
--- NOTE | 2022-02-06 18:23 | HO.PSYCHPN ---
Subjective Subjective Date of Service: 02/06/22 Reason For Visit: Depression Opiate Use D/O Methadone Maintenance Pt Interim History: Patient shared frustration with interactions he is having with nursing staff, feeling like he is being targeted. Today he shared a spoon with another patient and a staff person addressed him about COVID safety; patient said he could understand the reasoning but did not like the staff person's approach has he was admonished in front of several other people. Patient said it was triggering for him he felt emotional about it for several hours; the staff person came in apologize to him and he for gave the staff and was able to process this event with senior medical writer; he says he knows that he takes things to personally and over reacts. Otherwise patient says that he is ready for discharge and would like to discharge tomorrow to a half-way, with plans to hopefully get in to [facility] [facility] eventually or get his own apartment. He feels like the medications have been working very well and he does not want to change them. He says he knows he agreed that he would not be given either clonazepam or Adderall on discharge but asked if it would be okay if he had a few days worth. Box Sealing Machine Operator agreed that patient has worked very hard to resist using clonazepam for his anxiety, trying to utilize coping skills which he has done successfully; senior medical writer felt that giving him 4 tablets of clonazepam 1 mg in the event of panic was reasonable. Regarding Adderall, senior medical writer agrees the patient is more focused and less impulsive; senior medical writer agreed to give 7 days worth of extended-release Adderall since patient says that he will be actively working on trying to find an apartment and would benefit from help focusing. Patient has a history of ADHD and was on Ritalin as a child and adolescent. Patient understands that both clonazepam and Adderall or controlled substances and that it will be up to his outpatient provider whether not these will be restarted. Patient shared he is grateful for having to utilize coping skills he learned since it helped prove to himself that he can make do without the clonazepam. Patient reports that his depression remains resolved and that he is overall in a good mood even if he gets emotionally reactive and upset at times. He denies any SI or HI and is optimistic and future oriented. Mental Status Exam Mental Status Exam Narrative: Pt is alert and oriented; behavior is calm; dressed in casual attire, well groomed; mood is described as good and affect congruent; eye contact appropriate; Speech with normal rate, volume and prosody and not pressured; no psychomotor agitation present; thought process is organized and goal directed; Thought content is on tx and aftercare; otherwise pertinent to relevant topics and without any delusional content, paranoid ideations or grandiosity; denies any SI/HI. There is no evidence of perceptual disturbance and he denies AVH.? Patients insight and judgment are fair. Diagnostics Vital Signs (24Hr): Vital Signs - 24 hr 02/05/22 19:45 02/06/22 06:00 Temperature 97.7 F Pulse Rate 75 78 Respiratory Rate 18 Blood Pressure 126/72 129/87 Pulse Oximetry 99 BMI result Body Mass Index 25.8 Labs Results: 02/05/22 08:31 02/05/22 08:31 Labs: Laboratory Results - last 48 hr 02/05/22 02/05/22 08:31 08:31 WBC 7.3 RBC 4.93 Hgb 14.3 Hct 43.9 MCV 89.0 MCH 29.0 MCHC 32.6 RDW 13.6 Plt Count 243 MPV 8.6 L Immature Gran % (Auto) 0.4 Neut % (Auto) 47.5 Lymph % (Auto) 39.8 [place] % (Auto) 8.9 Eos % (Auto) 2.7 Baso % (Auto) 0.7 Lymph # (Auto) 2.9 [place] # (Auto) 0.7 Eos # (Auto) 0.2 Baso # (Auto) 0.1 Abs Immat Gran (auto) 0.03 Absolute Neuts (auto) 3.5 Absolute Nucleated RBC 0.000 Nucleated RBC % (auto) 0.0 Sodium 139 Potassium 4.6 Chloride 103 Carbon Dioxide 28 Anion Gap 13 Medications Medications Current Medications Acetaminophen (Acetaminophen 325 Mg Tablet) 650 mg PO Q6H PRN PRN Reason: Headache/Pain Mild Scale (1-3) Al Hydroxide/Mg Hydroxide (Magnesium Hydrox/Alum Hydrox 30 Ml Oral.Susp) 30 ml PO Q6H PRN PRN Reason: Heartburn/Nausea Amphetamine/Dextroamphetamine (Amphetamine Mixed Salts 10 Mg Tablet) 10 mg PO DAILY TITO Last Admin: 02/06/22 08:58 Dose: 10 mg Documented by: Clonazepam (Clonazepam 0.5 Mg Tablet) 0.5 mg PO BID PRN PRN Reason: Anxiety Last Admin: 02/06/22 10:42 Dose: 0.5 mg Documented by: Hydroxyzine HCl (Hydroxyzine Hcl 50 Mg Tablet) 50 mg PO TID PRN PRN Reason: Anxiety Last Admin: 02/06/22 10:40 Dose: 50 mg Documented by: Magnesium Hydroxide (Milk Of Magnesia 30 Ml Oral.Susp) 30 ml PO DAILY PRN PRN Reason: Constipation Melatonin (Melatonin 3 Mg Tablet) 9 mg PO BEDTIME TITO Last Admin: 02/05/22 20:05 Dose: 9 mg Documented by: Methadone HCl (Methadone Hcl 20 Mg/2 Ml Oral.Conc) 115 mg PO DAILY TITO Last Admin: 02/06/22 08:59 Dose: 115 mg Documented by: Mirtazapine (Mirtazapine 30 Mg Tablet) 30 mg PO BEDTIME TITO Last Admin: 02/05/22 20:05 Dose: 30 mg Documented by: Nicotine Polacrilex (Nicotine Polacrilex 2 Mg Gum) 2 mg BUCCAL Q2H PRN PRN Reason: Nicotine Cravings Last Admin: 02/03/22 14:04 Dose: 2 mg Documented by: Oxcarbazepine (Oxcarbazepine 300 Mg Tablet) 300 mg PO DAILY TITO Last Admin: 02/06/22 09:05 Dose: Not Given Documented by: Oxcarbazepine (Oxcarbazepine 300 Mg Tablet) 600 mg PO BEDTIME TITO Last Admin: 02/05/22 20:05 Dose: 600 mg Documented by: Prazosin HCl (Prazosin Hcl 1 Mg Capsule) 1 mg PO BEDTIME TITO; Protocol Last Admin: 02/05/22 20:05 Dose: 1 mg Documented by: Allergies Allergies Allergy/AdvReac Type Severity Reaction Status Date / Time trazodone AdvReac Intermediate Priaprism Verified 02/01/22 14:41 Assessment & Plan Assessment & Plan (1) MDD (major depressive disorder), recurrent episode, severe: Status: Acute Code(s): F33.2 - Major depressive disorder, recurrent severe without psychotic features (2) Post traumatic stress disorder (PTSD): Status: Acute Code(s): F43.10 - Post-traumatic stress disorder, unspecified (3) Opioid dependence on agonist therapy: Status: Acute Code(s): F11.20 - Opioid dependence, uncomplicated (4) Cocaine use disorder: Status: Acute Code(s): F14.10 - Cocaine abuse, uncomplicated Plan Deng is a 46 y.o. male who carries a dx of PTSD, polysubstance abuse, and hx of intermittent explosive disorder. He presented to [facility] on 01/30/22 reporting increased depression, recently admitted to [facility] on 01/24/22. Per crisis eval, pt made passive SI statements during assessment. Precipitating fx include that pt is currently homeless, had a recent breakup with gf, and has hx of frequent relapses on crack cocaine. He has been non-adherent on medication x 2 days. Utox positive for cocaine, fentanyl, and cannabis. EKG wnl, Qtc 428. -placed addiction consult, as pt would like to increase his methadone dose for cravings. Pt states ?what worked really well is klonopin,? asks for a low dose at bedtime. 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 He is also interested in tx for Hep C. 02/01 patient reports much anxiety; wants clonazepam at bedtime only however is open to trying prazosin 1st to see if that helps with sleep interrupted by history of trauma, which is severe. Will also start Trileptal since he reports this has helped him in the past. 02/02 Patient reports mood and anxiety have improved; denies any SI. Patient says he also slept better with prazosin and did not wake up suddenly or diaphoretic which has frequently happened in the past -mood remains improved; still anxious and irritable so will increase trileptal 02/05 pt remains in overall good mood, no SI, anxiety better controlled, sleeping well and with plans for the future (to get an apartment; eventually to take some classes). Pt is currently looking for dispo options 02/06 Patient shared frustration with interactions he is having with nursing staff, feeling like he is being targeted. Today he shared a spoon with another patient and a staff person addressed him about COVID safety; patient said he could understand the reasoning but did not like the staff person's approach has he was admonished in front of several other people. Patient said it was triggering for him he felt emotional about it for several hours; the staff person came in apologize to him and he for gave the staff and was able to process this event with senior medical writer; he says he knows that he takes things to personally and over reacts. Otherwise patient says that he is ready for discharge and would like to discharge tomorrow to a half-way, with plans to hopefully get in to [facility] eventually or get his own apartment. He feels like the medications have been working very well and he does not want to change them. He says he knows he agreed that he would not be given either clonazepam or Adderall on discharge but asked if it would be okay if he had a few days worth. Box Sealing Machine Operator agreed that patient has worked very hard to resist using clonazepam for his anxiety, trying to utilize coping skills which he has done successfully; senior medical writer felt that giving him 4 tablets of clonazepam 1 mg in the event of panic was reasonable. Regarding Adderall, senior medical writer agrees the patient is more focused and less impulsive; senior medical writer agreed to give 7 days worth of extended-release Adderall since patient says that he will be actively working on trying to find an apartment and would benefit from help focusing. Patient has a history of ADHD and was on Ritalin as a child and adolescent; it is understood the patient has a history of substance abuse and that Adderall (and clonazepam) is abuse of; however it is senior medical writer's opinion that this medication helps patient focus and improves impulse control which will hopefully reduce risk of relapse. Patient understands that both clonazepam and Adderall or controlled substances and that it will be up to his outpatient provider whether not these will be restarted. Patient shared he is grateful for having to utilize coping skills he learned since it helped prove to himself that he can make do without the clonazepam. Patient reports that his depression remains resolved and that he is overall in a good mood even if he gets emotionally reactive and upset at times. He denies any SI or HI and is optimistic and future oriented. Patient is not in imminent risk for harm to self or others and his request for discharge honored. Of note, patient was frequently emotionally reactive, taking things personally, struggling with boundaries and rules and exhibited borderline traits. At this time, there was not enough information to diagnose with borderline personality disorder. Plan: . cv trial of Adderall; hx of ADHD; helps with impulsiveness which can reduce risk to relapse; will not give on discharge which pt accepts Continue prazosin 1 mg q.h.s. for nightmares; has helped improve sleep contninue Trileptal to 300 mg daily INcrease to Trileptal to 600mg qhs DC Abilify 2 mg daily does not like side-effect profile; low dose unlikely to make significantly clinical difference Continuer emeron to 30mg qhs (increased on admission) Box Sealing Machine Operator agreed to clonazepam 0.5 mg p.r.n. b.i.d. since patient reports much anxiety and senior medical writer acknowledges that it will take some time for his medications to become therapeutic; however senior medical writer explained the risks/side effects of benzos and that this patient would not be continued on discharge to which patient understood and accepts. Q15 min safety checks, CV Monitor response to medications. Monitor for safety in the milieu. Discharge on stabilization. Patient seen. Chart reviewed. Discussed with team. Obtain collateral contact info?as needed I spent minutes with the patient and/or on the patient floor today, greater than?50% of which was spent counseling/coordinating care. Patient educated on: diagnosis, medication risk/benefits and substance abuse Informed Consent: understands Reason for contiued inpatient stay Substantial Risk for: stable for discharge
[2022-02-06 19:00] VITALS: BP 126/72; PULSE 76; TEMP 36.2; O2SAT 96
[2022-02-06] MEDS: OXcarbazepine 300 MG TABLET 600 MG PO (20:02)
[2022-02-06] MEDS: Melatonin 3 MG TABLET 9 MG PO (20:05)
[2022-02-06] MEDS: Mirtazapine 30 MG TABLET PO (20:05)
[2022-02-06] MEDS: Prazosin HCL 1 MG CAPSULE PO (20:05)
[2022-02-07] MEDS: hydrOXYzine HCL 50 MG TABLET PO (01:53)
[2022-02-07 06:00] VITALS: BP 128/79; PULSE 70; RESP 16; TEMP 35.8; O2SAT 99
[2022-02-07] MEDS: clonazePAM 0.5 MG TABLET PO ×2 (08:28→09:30)
[2022-02-07] MEDS: Amphetamine Mixed Salts 10 MG TABLET PO (08:29)
[2022-02-07] MEDS: OXcarbazepine 300 MG TABLET PO (08:29)
[2022-02-07] MEDS: methADONE HCl 20 MG/2 ML ORAL.CONC 115 MG PO (08:29)
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
[2022-02-07] MEDS: Nicotine Polacrilex 2 MG GUM BUCCAL (09:30)
== END 2022-02-07 12:49 | disposition home or self-care (01) | DRG 755 ==
LOC: HO.ED 04:56 → HO.PM5 01-31 13:46
PROVIDERS: Clinical Nurse Specialist Psychiatric/Mental Health, Adult; Admitting Provider Psychiatry & Neurology Psychiatry; Emergency Provider Student in an Organized Health Care Education/Training Program; Visit Provider Psychiatry & Neurology Psychiatry
DX: F43.10 Post-traumatic stress disorder, unspecified (principal); F11.20 Opioid dependence, uncomplicated; F90.9 Attention-deficit hyperactivity disorder, unspecified type; F14.10 Cocaine abuse, uncomplicated; F17.210 Nicotine dependence, cigarettes, uncomplicated; Z71.6 Tobacco abuse counseling; Z20.822 Contact with and (suspected) exposure to COVID-19; Z79.899 Other long term (current) drug therapy
CPT/HCPCS: 36415; 80051; 80053; 80061; 80307; 81003; 82607; 82746; 83036; 83735; 84439; 84443; 85025; 87635; 93005; 99285

== ENCOUNTER 2022-06-25 09:34 | Inpatient (IN) | payer OTHER, SELFPAY ==
--- NOTE | ~2022-06-25 | XR_ITS ---
EXAMINATION: XR CHEST CLINICAL INFORMATION: SOB COMPARISON: None TECHNIQUE: Frontal view of the chest was obtained. FINDINGS: No significant abnormality is noted involving the heart, lungs, mediastinum, bony thorax or soft tissues. XR/XR chest 1V IMPRESSION: Unremarkable chest exam
[2022-06-25 09:52] VITALS: BP 118/69; BP 121/72; PULSE 63; PULSE 92; RESP 16; TEMP 36; O2SAT 100; O2SAT 97; BMI 28.0
--- NOTE | 2022-06-25 09:58 | ECG_ITS ---
Test Reason : CHEST PRESSURE Blood Pressure : / mmHG Vent. Rate : 053 BPM Atrial Rate : 053 BPM P-R Int : 130 ms QRS Dur : 096 ms QT Int : 506 ms P-R-T Axes : 049 -24 -02 degrees QTc Int : 474 ms Sinus bradycardia Otherwise normal ECG When compared with ECG of 31-JAN-2022 11:23, QT has lengthened Referred By: Generic ED Physician Electronically Signed By:PAM WATTERS MD
[2022-06-25 10:52] LABS: Appearance Urine CLEAR; Color Urine DK YELLOW; Glucose Urine UA NEG (NEG); Leukocyte Esterase Urine NEG (NEG); Nitrite Urine NEG (NEG); Specific Gravity - Urine >= 1.030 (1.005-1.025); Urine Blood NEG (NEG); Urine Ketones >=80 MG/DL (NEG); Urine Protein TRACE MG/DL (NEG-TRACE)
--- NOTE | 2022-06-25 11:05 | ED.PSYCH ---
HPI - Psych General Chief Complaint: Psychiatric Symptoms Stated Complaint: SOB X'S 1 HOUR,100 % RA PER EMS Time Seen by Provider: 06/25/22 11:01 Source: patient and EMS Mode of arrival: EMS Limitations: no limitations History of Present Illness HPI Narrative: Patient comes to emergency room complaining of anxiety and depression. Patient states that he has suicidal thoughts, no specific plans. Patient states that he stopped taking his depression medications 3 days ago because he lost time. Patient also complaining that he missed 2 doses of methadone. Related Data Home Medications Medication Instructions Recorded Confirmed methadone 10 mg tablet 115 mg PO DAILY 01/30/22 01/30/22 Previous Rx's Medication Instructions Recorded clonazepam 1 mg tablet 1 mg PO DAILY PRN anxiety 4 days 02/07/22 #4 tabs dextroamphetamine-amphetamine ER 20 mg PO DAILY 7 days #7 caps 02/07/22 20 mg 24hr capsule,extend release hydroxyzine HCl 50 mg tablet 50 mg PO TID PRN Anxiety 30 days 02/07/22 #90 tabs melatonin 10 mg tablet 10 mg PO BEDTIME PRN sleep 30 days 02/07/22 #30 tabs mirtazapine 30 mg tablet 30 mg PO BEDTIME 30 days #30 tabs 02/07/22 nicotine (polacrilex) 2 mg gum 2 mg buccal Q2H PRN Nicotine 02/07/22 Cravings 30 days #100 ea oxcarbazepine 300 mg tablet See Rx Instructions .Route 02/07/22 .COMPLEX 30 days #90 tabs prazosin 1 mg capsule 1 mg PO BEDTIME 30 days #30 caps 02/07/22 Allergies Allergy/AdvReac Type Severity Reaction Status Date / Time trazodone AdvReac Intermediate Priaprism Verified 06/25/22 09:51 Review of Systems Review of Systems: Constitutional : No Weight loss, No Fever, No Chills, No Night Sweats, No Fatigue, No Malaise ENT/Mouth : No Hearing loss, No Ear Pain, No Nasal Congestion, No Sinus Pain, No Hoarseness, No sore throat, No Rhinorrhea, No Swallowing Difficulty Eyes: No Eye Pain, No Swelling, No Redness, No Foreign Body, No Discharge, No Vision Changes Cardiovascular : No Chest Pain, No SOB, No Dyspnea on Exertion, No Orthopnea, No Edema, No Palpitations Respiratory : No Cough, No Sputum, No Wheezing, No Smoke Exposure, No Dyspnea Gastrointestinal : No Nausea, No Vomiting, No Diarrhea, No Constipation, No abdominal Pain, No Hematochezia, No Melena Genitourinary : no irregular bleeding, No Dysuria, No Urinary Frequency, No Hematuria, No Urinary Incontinence, No Urgency, No Flank Pain, No Urinary Flow Changes, No Hesitancy Musculoskeletal : No joint pain, No Myalgias, No Joint Swelling Skin : No Skin Lesions, No rash Neuro : No Weakness, No Numbness, No Paresthesias, No Loss of Consciousness, No Dizziness, No Headache Psych : Complaining of anxiety, depression, suicidal thoughts with no plan, no HI Heme/Lymph: No Bruising, No Bleeding,No Lymphadenopathy Endocrine : No Polyuria, No Polydipsia, No Temperature Intolerance PMFSH Past Medical History Medical History MDD (major depressive disorder), recurrent episode, severe Opioid dependence on agonist therapy Social History Social History Household Members: None Housing: Homeless Do you presently have visiting nurse or other home services: No Patient Tobacco Use Status: Current everyday Tobacco user Tobacco use type: Cigarette Cigarette Packs Per Day: 1 Cigarettes Per Day: 20.0 Years Smoked: 38 e-Cigarette/Vaping Use: Currently Using Substance Use Type: Crack/Cocaine and Marijuana service: No Sexual orientation: Straight/Heterosexual Physical Exam Vital Signs: Vital Signs: Last Vital Signs Temp 96.8 F 06/25/22 09:52 Pulse 63 06/25/22 09:52 Resp 16 06/25/22 09:52 BP 121/72 06/25/22 09:52 Pulse Ox 97 06/25/22 09:52 O2 Del Method 06/25/22 09:52 BMI result Body Mass Index 28.0 Const: Other: Appearance: Alert. Oriented X3. No acute distress. Eyes: Pupils equal, round and reactive to light. ENT: Pharynx normal. Neck: Normal inspection. Neck supple. No lymph nodes noted. No crepitus CVS: Normal heart rate and rhythm. Pulses normal. Normal S1 and S2 Respiratory: No respiratory distress. Breath sounds normal. No Wheezing. No rales Abdomen: Soft and nontender. No rigidity. No distention. Skin: Skin warm and dry. Normal skin color. Normal skin turgor. Extremities: No lower extremity edema. No Lacerations. No Rash Neuro: Oriented X 3. No motor deficit. No sensory deficit. Moving all extremities. No slurred speech. CN 2 through 12 grossly intact Psych: calm, cooperative, normal affect, coherent Course Course Course Narrative: Left standing. [facility] consult pending. Physician observation started at 11:05 [facility] - Psych Lab Data Labs: Lab Results 06/25/22 Range/Units 10:44 Urine Color DK YELLOW Urine Appearance CLEAR Urine pH 6.0 (5.0-8.0) Ur Specific [place] >= 1.030 H (1.005-1.025) Urine Protein TRACE (NEG-TRACE) MG/DL Urine Glucose (UA) NEG (NEG) MG/DL Urine Ketones >=80 (NEG) MG/DL Urine Blood NEG (NEG) Urine Nitrite NEG (NEG) Ur Leukocyte Esterase NEG (NEG) Discharge Plan Discharge Clinical Impression: Depression, Opioid dependence on agonist therapy Patient Disposition: Still a Patient Prescriptions: No Action methadone 10 mg Tablet 115 mg PO DAILY nicotine (polacrilex) 2 mg Gum 2 mg buccal Q2H PRN (Reason: Nicotine Cravings) 30 Days Qty: 100 0RF prazosin 1 mg Capsule 1 mg PO BEDTIME 30 Days Qty: 30 0RF Protocol: Hold for SBP< HOLD for SBP < : 90 hydroxyzine HCl 50 mg Tablet 50 mg PO TID PRN (Reason: Anxiety) 30 Days Qty: 90 0RF mirtazapine 30 mg Tablet 30 mg PO BEDTIME 30 Days Qty: 30 0RF clonazepam 1 mg tablet 1 mg PO DAILY PRN (Reason: anxiety) 4 Days Qty: 4 0RF Rx Instructions: take 1/2 to 1 tab daily as needed for panic dextroamphetamine-amphetamine 20 mg capsule,extended release 24hr 20 mg PO DAILY 7 Days Qty: 7 0RF oxcarbazepine 300 mg Tablet See Rx Instructions .ROUTE .COMPLEX 30 Days Qty: 90 0RF Rx Instructions: take 1 tab in the morning and take 2 tabs at bedtime melatonin 10 mg tablet 10 mg PO BEDTIME PRN (Reason: sleep) 30 Days Qty: 30 0RF
[2022-06-25 11:07] LABS: Basophils Percent Auto 0.3 % (0-2); Eosinophils Absolute Auto 0.1 X10*3/uL (0.0-0.4); Hematocrit 43.6 % (42.0-52.0); Hemoglobin 14.9 g/dl (14.0-18.0); Imm Gran Abs Auto 0.02 X10*3/uL (0.00-0.03); Imm Gran Pct Auto 0.3 % (0.0-0.4); Lymphocytes Percent Auto 16.6 % (20-40); MANUAL DIFF FLAG NO; Mean Corpuscular HGB Conc 34.2 g/dl (31.0-36.0); Mean Corpuscular Hemoglobin 28.8 pg (27.0-33.0); Mean Corpuscular Volume 84.2 fL (80.0-98.0); Mean Platelet Volume 8.2 fL (9.4-12.4); Monocytes Absolute Auto 0.6 X10*3/uL (0.1-1.2); Monocytes Percent Auto 9.7 % (2-11); Neutrophils Absolute Auto 4.5 x10*3/uL (2.0-8.3); Neutrophils Percent Auto 72.1 % (45-73); Platelet Count 223 X10*3/uL (160-400); Red Blood Count 5.18 X10*6/uL (4.60-5.80); Red Cell Distribution Width 13.2 % (11.0-16.0); White Blood Count 6.3 X10*3/uL (4.8-10.8)
[2022-06-25 11:11] LABS: COVID-19 Test Negative (Negative)
[2022-06-25 11:21] LABS: Amphetamine Screen Urine Not Detected (Not Detect); Barbiturates, Urine Not Detected (Not Detect); Benzodiazepines Screen Urine Not Detected (Not Detect); Cannabinoid Screen Urine POSITIVE (Not Detect); Cocaine Screen Urine POSITIVE (Not Detect); Fentanyl, urine POSITIVE (Not Detect); Opiate Screen Urine Not Detected (Not Detect); Phencyclidine Screen Urine Not Detected (Not Detect)
[2022-06-25 11:21] LABS: Anion Gap 14 (12-20); Blood Urea Nitrogen 21 mg/dL (9-16); Calcium 9.1 mg/dL (8.4-10.2); Carbon Dioxide 27 mmol/L (22-29); Chloride 103 mmol/L (96-108); Creatinine Clr Calc Pharmacy 112.9; Estimated Glomerular Filt Rate > 60; Glucose Random 99 mg/dL (60-115); Potassium 4.3 mmol/L (3.3-5.1); Sodium 140 mmol/L (135-145)
--- NOTE | 2022-06-25 11:22 | PC.NURSE ---
supplement to triage: patient self presents (called ambulance himself) reports hasnt had his regular meds ~3 days ago. states he's homeless [place] vicinity of [place] gets meds from [place]. reports used cocaine 100 dollars and two bags heroin smokes one pack per day. reports hearing voices in past-recent inpt hospitalizations since january here, also [facility] (pill OD attempt) [facility] to hurt self in rcent weeks. contracts for safety here, seems to desire IPLOC.
[2022-06-25 11:26] LABS: B Type Natriuretic Peptide 29 pg/mL (<100); Troponin-I High Sensitivity 4.3 ng/L (<3.5-35.0)
[2022-06-25] MEDS: Nicotine 21 MG PATCH.TD24 TRANSDERMA (12:01)
--- NOTE | 2022-06-25 12:12 | HE.PHANOTE ---
Pharmacy received methadone verification form from [facility]. Patient last recieve methadone 130 mg on 06/23/[address] [facility]. [facility] confirm with Alex. Aga Huynh, PharmD
[2022-06-25] MEDS: methADONE HCl 20 MG/2 ML ORAL.CONC 130 MG PO (16:18)
[2022-06-26 00:25] VITALS: BP 136/70; PULSE 54; TEMP 36.1; O2SAT 96
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
[2022-06-26 08:15] VITALS: BP 119/68; PULSE 53; RESP 16; TEMP 36.6; O2SAT 94
[2022-06-26] MEDS: methADONE HCl 20 MG/2 ML ORAL.CONC 130 MG PO (08:33)
[2022-06-26 08:59] LABS: Estimated Average Glucose 111 mg/dL; Hemoglobin A1c % 5.5 %
[2022-06-26 09:17] LABS: Cholesterol 132 mg/dL; HDL Cholesterol 29 mg/dL; LDL Cholesterol Calculated 90 mg/dl; Magnesium 2.1 mg/dL (1.6-2.6); Triglycerides 69 mg/dL
[2022-06-26 09:35] LABS: Free T4 (Free Thyroxine) 1.25 ng/dL (0.71-1.85); Thyroid Stimulating Hormone 0.26 uIU/mL (0.32-4.0)
[2022-06-26 09:54] LABS: Folate 14.6 ng/mL (> or = 4.0); Vitamin B12 771 pg/mL (200-900)
[2022-06-26] MEDS: clonazePAM 1 MG TABLET PO (15:40)
[2022-06-26 18:00] VITALS: BP 118/78; PULSE 68; RESP 16; TEMP 36.5; O2SAT 98
[2022-06-26] MEDS: hydrOXYzine HCL 50 MG TABLET PO (19:10)
[2022-06-26] MEDS: OXcarbazepine 300 MG TABLET PO (20:59)
[2022-06-26] MEDS: Prazosin HCL 1 MG CAPSULE PO (20:59)
[2022-06-26] MEDS: Mirtazapine 15 MG TABLET PO (20:59)
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
[2022-06-27 06:00] VITALS: BP 103/56; PULSE 51; RESP 16; TEMP 36.6; O2SAT 98
[2022-06-27 07:00] VITALS: BMI 27.8
[2022-06-27] MEDS: methADONE HCl 20 MG/2 ML ORAL.CONC 130 MG PO (09:49)
[2022-06-27] MEDS: Dextroamphetamine/Amphetamine XR 10 MG CAP.ER.24H 20 MG PO (09:49)
[2022-06-27] MEDS: OXcarbazepine 300 MG TABLET PO (09:49)
[2022-06-27] MEDS: clonazePAM 1 MG TABLET PO ×2 (12:19→19:21)
--- NOTE | 2022-06-27 13:01 | HO.PSYCHPN ---
Subjective Subjective Date of Service: 06/27/22 Reason For Visit: Depression, Polysubstance use Subjective Notes: Conditional Voluntary Healthcare Proxy: No Guardianship: No Interim History: Tolerating medication titrations, reports symptom improvement. Reports sleep, appetite are improving Participating in milieu. Search continues for addictions TSS placement post discharge Medication Compliance: Yes Side effects from medications: No Attending Groups: Yes Review of Systems Acute medical concerns: No Medical Review of Systems: unchanged Review of Systems Review of Systems Yes all other systems are reviewed and are negative Psychiatric: Reports abnormal sleep pattern, Reports anxiety, Reports change in appetite, Reports depression, Reports difficulty concentrating, Reports hopelessness, Reports irritability, Reports anhedonia, Reports mood swings and Reports suicidal ideation Mental Status Exam Mental Status Exam Patient Appearance: Appropriate Patient Orientation: Person, Place, Time and Situation Level of Consciousness: Alert Patient Behavior: Talkative and Good Eye Contact Mood Description: Withdrawn, Depressed, Anxious and Apprehensive Affect Description: Flat Patient Cognition Impaired: No Ability to Follow Directions: Good Speech Pattern: Spontaneous Speech Memory Description: Episodic Impaired Hallucinations: None Delusions: Not Present Perceptual Disturbances: Depersonalization and Derealization Thought Process: Distracted and Rumination Thought Content: positive for [place], positive for Circumstantial and positive for Suicidal Ideation Depressive Symptoms: Increased Irritability, Loss of Int. in Activity, Feelings of Worthlessness, Hopelessness, Isolating-Friends/Family, Thoughts of /Suicide and Difficulty Concentrating Judgement: Fair Diagnostics Vital Signs (24Hr): Vital Signs - 24 hr 06/26/22 18:00 06/27/22 06:00 Temperature 97.7 F 97.8 F Pulse Rate 68 51 Respiratory Rate 16 16 Blood Pressure 118/78 103/56 L Pulse Oximetry 98 98 Oxygen Delivery Method Room Air Room Air BMI result Body Mass Index 27.8 Labs Results: 06/25/22 10:53 06/25/22 10:53 Labs: Laboratory Results - last 48 hr 06/26/22 06/26/22 06/26/22 08:08 08:08 08:08 Estimat Average Glucose 111 Hemoglobin A1c % 5.5 Magnesium 2.1 Triglycerides 69 Cholesterol 132 D LDL Cholesterol, Calc 90 HDL Cholesterol 29 D Vitamin B12 771 Folate 14.6 TSH 0.26 L Free T4 1.25 Imaging Radiology Impressions: ITS Impressions Chest X-Ray 06/25/22 10:47 IMPRESSION: Unremarkable chest exam Medications Medications Current Medications Acetaminophen (Acetaminophen 325 Mg Tablet) 650 mg PO Q6H PRN PRN Reason: Headache/Pain Mild Scale (1-3) Al Hydroxide/Mg Hydroxide (Magnesium Hydrox/Alum Hydrox 30 Ml Oral.Susp) 30 ml PO Q6H PRN PRN Reason: Heartburn/Nausea Amphetamine/Dextroamphetamine (Dextroamphetamine/Amphetamine Xr 10 Mg Cap.Er.24h) 20 mg PO DAILY [facility] Last Admin: 06/27/22 09:49 Dose: 20 mg Aripiprazole (Aripiprazole 2 Mg Tablet) 2 mg PO DAILY [facility] Clonazepam (Clonazepam 1 Mg Tablet) 1 mg PO BID PRN PRN Reason: Anxiety Last Admin: 06/27/22 12:19 Dose: 1 mg Hydroxyzine HCl (Hydroxyzine Hcl 25 Mg Tablet) 25 mg PO Q6H PRN PRN Reason: Anxiety Hydroxyzine HCl (Hydroxyzine Hcl 50 Mg Tablet) 50 mg PO Q8H PRN PRN Reason: anxiety Last Admin: 06/26/22 19:10 Dose: 50 mg Magnesium Hydroxide (Milk Of Magnesia 30 Ml Oral.Susp) 30 ml PO DAILY PRN PRN Reason: Constipation Melatonin (Melatonin 3 Mg Tablet) 10 mg PO BEDTIME PRN PRN Reason: Insomnia Methadone HCl (Methadone Hcl 20 Mg/2 Ml Oral.Conc) 130 mg PO DAILY [facility] Last Admin: 06/27/22 09:49 Dose: 130 mg Mirtazapine (Mirtazapine 30 Mg Tablet) 30 mg PO BEDTIME [facility] Multivitamins/Vitamin C (Multivitamin Tablet) 1 tab PO DAILY [facility] Nicotine Polacrilex (Nicotine Polacrilex 2 Mg Gum) 2 mg BUCCAL Q1H PRN PRN Reason: Nicotine Cravings Oxcarbazepine (Oxcarbazepine 300 Mg Tablet) 300 mg PO DAILY [facility] Oxcarbazepine (Oxcarbazepine 300 Mg Tablet) 600 mg PO BEDTIME [facility] Prazosin HCl (Prazosin Hcl 1 Mg Capsule) 1 mg PO BEDTIME [facility]; Protocol Last Admin: 06/26/22 20:59 Dose: 1 mg Thiamine HCl (Thiamine Hcl 100 Mg Tablet) 100 mg PO DAILY [facility] Trazodone HCl (Trazodone Hcl 50 Mg Tablet) 50 mg PO BEDTIME PRN PRN Reason: Insomnia Vitamin D (Cholecalciferol (Vitamin D3) 25 Mcg Tablet) 25 mcg PO DAILY [facility] Allergies Allergies Allergy/AdvReac Type Severity Reaction Status Date / Time trazodone AdvReac Intermediate Priaprism Verified 06/25/22 09:51 Assessment & Plan Assessment & Plan (1) MDD (major depressive disorder), recurrent episode, severe: Status: Acute Code(s): F33.2 - Major depressive disorder, recurrent severe without psychotic features (2) Post traumatic stress disorder (PTSD): Status: Acute Code(s): F43.10 - Post-traumatic stress disorder, unspecified (3) Opioid dependence on agonist therapy: Status: Acute Code(s): F11.20 - Opioid dependence, uncomplicated Plan 06/27/22- Tolerating titrations of medications thus far Continue current plan. I spent minutes with the patient and/or on the patient floor today, greater than?50% of which was spent counseling/coordinating care. Patient educated on: medication risk/benefits and therapeutic strategies Informed Consent: understands and further education needed Reason for contiued inpatient stay Substantial Risk for: harm to self, inability to function and rapid decompensation
[2022-06-27 18:00] VITALS: BP 133/62; PULSE 72; TEMP 36.7; O2SAT 98
--- NOTE | 2022-06-27 18:04 | P.PNPSI_ITS ---
Subjective Subjective Reason For Visit: Depression, Polysubstance use Diagnostics Vital Signs (24Hr): Vital Signs - 24 hr 06/27/22 06:00 Temperature 97.8 F Pulse Rate 51 Respiratory Rate 16 Blood Pressure 103/56 L Pulse Oximetry 98 Oxygen Delivery Method Room Air BMI result Body Mass Index 27.8 Labs Results: 06/25/22 10:53 06/25/22 10:53 Labs: Laboratory Results - last 48 hr 06/26/22 06/26/22 06/26/22 08:08 08:08 08:08 Estimat Average Glucose 111 Hemoglobin A1c % 5.5 Magnesium 2.1 Triglycerides 69 Cholesterol 132 D LDL Cholesterol, Calc 90 HDL Cholesterol 29 D Vitamin B12 771 Folate 14.6 TSH 0.26 L Free T4 1.25 Imaging Radiology Impressions: ITS Impressions Chest X-Ray 06/25/22 10:47 IMPRESSION: Unremarkable chest exam Medications Medications Current Medications Acetaminophen (Acetaminophen 325 Mg Tablet) 650 mg PO Q6H PRN PRN Reason: Headache/Pain Mild Scale (1-3) Al Hydroxide/Mg Hydroxide (Magnesium Hydrox/Alum Hydrox 30 Ml Oral.Susp) 30 ml PO Q6H PRN PRN Reason: Heartburn/Nausea Amphetamine/Dextroamphetamine (Dextroamphetamine/Amphetamine Xr 10 Mg Cap.Er.24h) 20 mg PO DAILY [facility] Last Admin: 06/27/22 09:49 Dose: 20 mg Aripiprazole (Aripiprazole 2 Mg Tablet) 2 mg PO DAILY [facility] Clonazepam (Clonazepam 1 Mg Tablet) 1 mg PO BID PRN PRN Reason: Anxiety Last Admin: 06/27/22 12:19 Dose: 1 mg Hydroxyzine HCl (Hydroxyzine Hcl 25 Mg Tablet) 25 mg PO Q6H PRN PRN Reason: Anxiety Hydroxyzine HCl (Hydroxyzine Hcl 50 Mg Tablet) 50 mg PO Q8H PRN PRN Reason: anxiety Last Admin: 06/26/22 19:10 Dose: 50 mg Magnesium Hydroxide (Milk Of Magnesia 30 Ml Oral.Susp) 30 ml PO DAILY PRN PRN Reason: Constipation Melatonin (Melatonin 3 Mg Tablet) 10 mg PO BEDTIME PRN PRN Reason: Insomnia Methadone HCl (Methadone Hcl 20 Mg/2 Ml Oral.Conc) 130 mg PO DAILY [facility] Last Admin: 06/27/22 09:49 Dose: 130 mg Mirtazapine (Mirtazapine 30 Mg Tablet) 30 mg PO BEDTIME [facility] Multivitamins/Vitamin C (Multivitamin Tablet) 1 tab PO DAILY [facility] Nicotine Polacrilex (Nicotine Polacrilex 2 Mg Gum) 2 mg BUCCAL Q1H PRN PRN Reason: Nicotine Cravings Oxcarbazepine (Oxcarbazepine 300 Mg Tablet) 300 mg PO DAILY [facility] Oxcarbazepine (Oxcarbazepine 300 Mg Tablet) 600 mg PO BEDTIME [facility] Prazosin HCl (Prazosin Hcl 1 Mg Capsule) 1 mg PO BEDTIME [facility]; Protocol Last Admin: 06/26/22 20:59 Dose: 1 mg Thiamine HCl (Thiamine Hcl 100 Mg Tablet) 100 mg PO DAILY [facility] Trazodone HCl (Trazodone Hcl 50 Mg Tablet) 50 mg PO BEDTIME PRN PRN Reason: Insomnia Vitamin D (Cholecalciferol (Vitamin D3) 25 Mcg Tablet) 25 mcg PO DAILY [facility] Allergies Allergies Allergy/AdvReac Type Severity Reaction Status Date / Time trazodone AdvReac Intermediate Priaprism Verified 06/25/22 09:51 Assessment & Plan Assessment & Plan (1) Post traumatic stress disorder (PTSD): Status: Acute Code(s): F43.10 - Post-traumatic stress disorder, unspecified (2) Opioid dependence on agonist therapy: Status: Acute Code(s): F11.20 - Opioid dependence, uncomplicated (3) MDD (major depressive disorder), recurrent episode, severe: Status: Acute Code(s): F33.2 - Major depressive disorder, recurrent severe without psychotic features Plan 47 yo male, hx of PTSD, depression, polysubstance abuse, currently on Methadone maintenance, presents with SI, hx of attempt within the past month and off medications with no out pt alliances currently. Plan: Pt would like to return to addictions treatment upon discharge. Review of regime with pt to re-titrate regime used in January 2022 as pt reports efficacy. Collateral contacts Encourage full milieu, groups, coping skill work and addiction offerings. I spent minutes with the patient and/or on the patient floor today, greater than?50% of which was spent counseling/coordinating care.
[2022-06-27] MEDS: Prazosin HCL 1 MG CAPSULE PO (19:22)
[2022-06-27] MEDS: OXcarbazepine 300 MG TABLET 600 MG PO (19:22)
[2022-06-27] MEDS: Mirtazapine 30 MG TABLET PO (19:23)
[2022-06-28 08:30] VITALS: BP 119/68; PULSE 74; TEMP 36.6
[2022-06-28] MEDS: Multivitamin TABLET 1 TAB PO (08:53)
[2022-06-28] MEDS: Cholecalciferol (Vitamin D3) 25 MCG TABLET PO (08:53)
[2022-06-28] MEDS: Dextroamphetamine/Amphetamine XR 10 MG CAP.ER.24H 20 MG PO (08:53)
[2022-06-28] MEDS: ARIPiprazole 2 MG TABLET PO (08:53)
[2022-06-28] MEDS: methADONE HCl 20 MG/2 ML ORAL.CONC 130 MG PO (08:53)
[2022-06-28] MEDS: OXcarbazepine 300 MG TABLET PO (08:54)
[2022-06-28] MEDS: Thiamine HCL 100 MG TABLET PO (08:54)
[2022-06-28] MEDS: clonazePAM 1 MG TABLET PO ×2 (12:00→18:36)
--- NOTE | 2022-06-28 17:05 | HO.PSYCHPN ---
Subjective Subjective Date of Service: 06/28/22 Reason For Visit: Depression, Polysubstance use Subjective Notes: Conditional Voluntary Healthcare Proxy: No Guardianship: No Medical Problems Affecting Mental Status: No Interim History: My mind is calm, I can sleep, the racing thoughts are gone and I feel good. Reports no med SE, reports some relief from sx and overall more improvement Attending groups, involved in milieu. Medication Compliance: Yes Side effects from medications: No Attending Groups: Yes Review of Systems Acute medical concerns: No Medical Review of Systems: unchanged Review of Systems Psychiatric: Reports no additional psychiatric complaints Mental Status Exam Mental Status Exam Patient Appearance: Appropriate Patient Orientation: Person, Place, Time and Situation Level of Consciousness: Alert Patient Behavior: Appropriate, Talkative, Cooperative and Good Eye Contact Mood Description: Calm Affect Description: Calm Patient Cognition Impaired: No Ability to Follow Directions: Good Speech Pattern: Spontaneous Speech Memory Description: Intact Hallucinations: None Delusions: Not Present Thought Process: Intact Thought Content: positive for Intact Judgement: Good Diagnostics Vital Signs (24Hr): Vital Signs - 24 hr 06/27/22 18:00 06/28/22 08:30 Temperature 98.1 F 98 F Pulse Rate 72 74 Blood Pressure 133/62 119/68 Pulse Oximetry 98 BMI result Body Mass Index 27.8 Labs Results: 06/25/22 10:53 06/25/22 10:53 Imaging Radiology Impressions: ITS Impressions Chest X-Ray 06/25/22 10:47 IMPRESSION: Unremarkable chest exam Medications Medications Current Medications Acetaminophen (Acetaminophen 325 Mg Tablet) 650 mg PO Q6H PRN PRN Reason: Headache/Pain Mild Scale (1-3) Al Hydroxide/Mg Hydroxide (Magnesium Hydrox/Alum Hydrox 30 Ml Oral.Susp) 30 ml PO Q6H PRN PRN Reason: Heartburn/Nausea Amphetamine/Dextroamphetamine (Dextroamphetamine/Amphetamine Xr 10 Mg Cap.Er.24h) 20 mg PO DAILY [facility] Last Admin: 06/28/22 08:53 Dose: 20 mg Aripiprazole (Aripiprazole 2 Mg Tablet) 2 mg PO DAILY [facility] Last Admin: 06/28/22 08:53 Dose: 2 mg Clonazepam (Clonazepam 1 Mg Tablet) 1 mg PO 1200,2100 [facility] Last Admin: 06/28/22 12:00 Dose: 1 mg Hydroxyzine HCl (Hydroxyzine Hcl 50 Mg Tablet) 50 mg PO Q8H PRN PRN Reason: anxiety Last Admin: 06/26/22 19:10 Dose: 50 mg Magnesium Hydroxide (Milk Of Magnesia 30 Ml Oral.Susp) 30 ml PO DAILY PRN PRN Reason: Constipation Melatonin (Melatonin 3 Mg Tablet) 10 mg PO BEDTIME PRN PRN Reason: Insomnia Methadone HCl (Methadone Hcl 20 Mg/2 Ml Oral.Conc) 130 mg PO DAILY [facility] Last Admin: 06/28/22 08:53 Dose: 130 mg Mirtazapine (Mirtazapine 30 Mg Tablet) 30 mg PO BEDTIME [facility] Last Admin: 06/27/22 19:23 Dose: 30 mg Multivitamins/Vitamin C (Multivitamin Tablet) 1 tab PO DAILY [facility] Last Admin: 06/28/22 08:53 Dose: 1 tab Nicotine Polacrilex (Nicotine Polacrilex 2 Mg Gum) 2 mg BUCCAL Q1H PRN PRN Reason: Nicotine Cravings Oxcarbazepine (Oxcarbazepine 300 Mg Tablet) 300 mg PO DAILY [facility] Last Admin: 06/28/22 08:54 Dose: 300 mg Oxcarbazepine (Oxcarbazepine 300 Mg Tablet) 600 mg PO BEDTIME [facility] Last Admin: 06/27/22 19:22 Dose: 600 mg Prazosin HCl (Prazosin Hcl 1 Mg Capsule) 1 mg PO BEDTIME [facility]; Protocol Last Admin: 06/27/22 19:22 Dose: 1 mg Thiamine HCl (Thiamine Hcl 100 Mg Tablet) 100 mg PO DAILY [facility] Last Admin: 06/28/22 08:54 Dose: 100 mg Trazodone HCl (Trazodone Hcl 50 Mg Tablet) 50 mg PO BEDTIME PRN PRN Reason: Insomnia Vitamin D (Cholecalciferol (Vitamin D3) 25 Mcg Tablet) 25 mcg PO DAILY [facility] Last Admin: 06/28/22 08:53 Dose: 25 mcg Allergies Allergies Allergy/AdvReac Type Severity Reaction Status Date / Time trazodone AdvReac Intermediate Priaprism Verified 06/25/22 09:51 Assessment & Plan Assessment & Plan (1) Post traumatic stress disorder (PTSD): Status: Acute Code(s): F43.10 - Post-traumatic stress disorder, unspecified (2) Opioid dependence on agonist therapy: Status: Acute Code(s): F11.20 - Opioid dependence, uncomplicated (3) MDD (major depressive disorder), recurrent episode, severe: Status: Acute Code(s): F33.2 - Major depressive disorder, recurrent severe without psychotic features Plan 47 yo male, hx of PTSD, depression, polysubstance abuse, currently on Methadone maintenance, presents with SI, hx of attempt within the past month and off medications with no out pt alliances currently. Plan: Pt would like to return to addictions treatment upon discharge. Review of regime with pt to re-titrate regime used in January 2022 as pt reports efficacy. Collateral contacts Encourage full milieu, groups, coping skill work and addiction offerings. 06/28/22: Reporting some relief and improvement. Tolerating titration without adverse effects. Continue current plan Continue to encourage milieu involvement I spent minutes with the patient and/or on the patient floor today, greater than?50% of which was spent counseling/coordinating care. Patient educated on: therapeutic strategies Informed Consent: understands and further education needed Reason for contiued inpatient stay Substantial Risk for: harm to self, inability to function and rapid decompensation
[2022-06-28 18:00] VITALS: BP 137/74; PULSE 87; TEMP 37; O2SAT 97
[2022-06-28] MEDS: OXcarbazepine 300 MG TABLET 600 MG PO (19:25)
[2022-06-28] MEDS: Prazosin HCL 1 MG CAPSULE PO (19:25)
[2022-06-28] MEDS: Mirtazapine 30 MG TABLET PO (19:25)
[2022-06-29 06:00] VITALS: BP 112/76; PULSE 78; RESP 16; TEMP 36.7; O2SAT 98
[2022-06-29] MEDS: methADONE HCl 20 MG/2 ML ORAL.CONC 130 MG PO (08:26)
[2022-06-29] MEDS: Multivitamin TABLET 1 TAB PO (08:29)
[2022-06-29] MEDS: ARIPiprazole 2 MG TABLET PO (08:30)
[2022-06-29] MEDS: Thiamine HCL 100 MG TABLET PO (08:30)
[2022-06-29] MEDS: Dextroamphetamine/Amphetamine XR 10 MG CAP.ER.24H 20 MG PO (08:30)
[2022-06-29] MEDS: Cholecalciferol (Vitamin D3) 25 MCG TABLET PO (08:30)
[2022-06-29] MEDS: OXcarbazepine 300 MG TABLET PO ×2 (08:32→19:26)
[2022-06-29] MEDS: clonazePAM 1 MG TABLET PO ×3 (12:42→19:26)
[2022-06-29 19:20] VITALS: BP 117/69; PULSE 77; RESP 14; TEMP 36.7
[2022-06-29] MEDS: traZODone HCL 50 MG TABLET PO (19:26)
[2022-06-29] MEDS: Mirtazapine 30 MG TABLET PO (19:26)
[2022-06-29] MEDS: OXcarbazepine 300 MG TABLET 600 MG PO (19:26)
[2022-06-29] MEDS: Prazosin HCL 1 MG CAPSULE PO (19:26)
--- NOTE | 2022-06-29 23:51 | P.PNPSI_ITS ---
Subjective Subjective Date of Service: 06/29/22 Reason For Visit: Depression, Polysubstance use Subjective Notes: [place] Warning Interim History: Patient seen and discussed with team. Patient evaluated today and upon interview pt reports he is doing okay but Im not the greatest. Says his roommate is up and down all night. Says he feels he is on the right regimen of meds, worried they will be cut. Asks for PRN klonopin but discussed that he may utilize it on the unit but he will not be discharged on it, wants this for sleep as his roommate keeps him up. Feels safe. Pt later asks for an increase in adderall, as he says this has been helpful for focus, depression, and energy. Per staff, pt has been somewhat sedated. He asks for a booster dose of adderall IR in the afternoon, discussed that I would not prescribe IR due to abuse potential, may trial an increase however will monitor for agitation. In the milieu, patient is safe and appropriate in behavior. Says he feels safe. Medication Compliance: Yes Side effects from medications: No Attending Groups: Yes Review of Systems Acute medical concerns: No Medical Review of Systems: unchanged Mental Status Exam Mental Status Exam Narrative: Patient Appearance: Appropriate Patient Orientation: Person, Place, Time and Situation Level of Consciousness: Alert Patient Behavior: Appropriate, Talkative, Cooperative and Good Eye Contact Mood Description: Calm Affect Description: Calm Patient Cognition Impaired: No Ability to Follow Directions: Good Speech Pattern: Spontaneous Speech Memory Description: Intact Hallucinations: None Delusions: Not Present Thought Process: Intact Thought Content: positive for Intact Judgement: Good Diagnostics Vital Signs (24Hr): Vital Signs - 24 hr 06/29/22 19:20 06/30/22 06:00 Temperature 98.1 F 97.9 F Pulse Rate 77 83 Respiratory Rate 14 Blood Pressure 117/69 116/78 Pulse Oximetry 98 Oxygen Delivery Method Room Air BMI result Body Mass Index 27.8 Labs Results: 06/25/22 10:53 06/25/22 10:53 Imaging Radiology Impressions: ITS Impressions Chest X-Ray 06/25/22 10:47 IMPRESSION: Unremarkable chest exam Medications Medications Current Medications Acetaminophen (Acetaminophen 325 Mg Tablet) 650 mg PO Q6H PRN PRN Reason: Headache/Pain Mild Scale (1-3) Al Hydroxide/Mg Hydroxide (Magnesium Hydrox/Alum Hydrox 30 Ml Oral.Susp) 30 ml PO Q6H PRN PRN Reason: Heartburn/Nausea Amphetamine/Dextroamphetamine (Dextroamphetamine/Amphetamine Xr 10 Mg Cap.Er.24h) 30 mg PO DAILY [facility] Last Admin: 06/30/22 08:28 Dose: 30 mg Aripiprazole (Aripiprazole 2 Mg Tablet) 2 mg PO DAILY [facility] Last Admin: 06/30/22 08:29 Dose: 2 mg Clonazepam (Clonazepam 1 Mg Tablet) 1 mg PO 1200,2100 [facility] Last Admin: 06/30/22 11:56 Dose: 1 mg Clonazepam (Clonazepam 1 Mg Tablet) 1 mg PO DAILY PRN PRN Reason: agitation, anxiety Last Admin: 06/30/22 14:37 Dose: 1 mg Hydroxyzine HCl (Hydroxyzine Hcl 50 Mg Tablet) 50 mg PO Q8H PRN PRN Reason: anxiety Last Admin: 06/26/22 19:10 Dose: 50 mg Magnesium Hydroxide (Milk Of Magnesia 30 Ml Oral.Susp) 30 ml PO DAILY PRN PRN Reason: Constipation Melatonin (Melatonin 3 Mg Tablet) 10 mg PO BEDTIME PRN PRN Reason: Insomnia Methadone HCl (Methadone Hcl 20 Mg/2 Ml Oral.Conc) 130 mg PO DAILY [facility] Last Admin: 06/30/22 08:30 Dose: 130 mg Mirtazapine (Mirtazapine 30 Mg Tablet) 30 mg PO BEDTIME [facility] Last Admin: 06/29/22 19:26 Dose: 30 mg Multivitamins/Vitamin C (Multivitamin Tablet) 1 tab PO DAILY [facility] Last Admin: 06/30/22 08:29 Dose: 1 tab Nicotine Polacrilex (Nicotine Polacrilex 2 Mg Gum) 2 mg BUCCAL Q1H PRN PRN Reason: Nicotine Cravings Last Admin: 06/30/22 17:19 Dose: 2 mg Oxcarbazepine (Oxcarbazepine 300 Mg Tablet) 300 mg PO DAILY [facility] Last Admin: 06/30/22 08:29 Dose: 300 mg Oxcarbazepine (Oxcarbazepine 300 Mg Tablet) 600 mg PO BEDTIME [facility] Last Admin: 06/29/22 19:26 Dose: 600 mg Prazosin HCl (Prazosin Hcl 1 Mg Capsule) 1 mg PO BEDTIME [facility]; Protocol Last Admin: 06/29/22 19:26 Dose: 1 mg Thiamine HCl (Thiamine Hcl 100 Mg Tablet) 100 mg PO DAILY [facility] Last Admin: 06/30/22 08:28 Dose: 100 mg Trazodone HCl (Trazodone Hcl 50 Mg Tablet) 50 mg PO BEDTIME PRN PRN Reason: Insomnia Last Admin: 06/29/22 19:26 Dose: 50 mg Vitamin D (Cholecalciferol (Vitamin D3) 25 Mcg Tablet) 25 mcg PO DAILY [facility] Last Admin: 06/30/22 08:28 Dose: 25 mcg Allergies Allergies Allergy/AdvReac Type Severity Reaction Status Date / Time trazodone AdvReac Intermediate Priaprism Verified 06/25/22 09:51 Assessment & Plan Assessment & Plan (1) Post traumatic stress disorder (PTSD): Status: Acute Code(s): F43.10 - Post-traumatic stress disorder, unspecified (2) Opioid dependence on agonist therapy: Status: Acute Code(s): F11.20 - Opioid dependence, uncomplicated (3) MDD (major depressive disorder), recurrent episode, severe: Status: Acute Code(s): F33.2 - Major depressive disorder, recurrent severe without psychotic features Plan 47 yo male, hx of PTSD, depression, polysubstance abuse, currently on Methadone maintenance, presents with SI, hx of attempt within the past month and off medications with no out pt alliances currently. Plan: Pt would like to return to addictions treatment upon discharge. Review of regime with pt to re-titrate regime used in January 2022 as pt reports efficacy. Collateral contacts Encourage full milieu, groups, coping skill work and addiction offerings. 06/28/22: Reporting some relief and improvement. Tolerating titration without adverse effects. ? Continue current plan ? Continue to encourage milieu involvement 06/29/22: Will add PRN klonopin but will not prescribe on discharge, pt has issues with roommate and klonopin may help with agitation and sleep. trial an increase in adderall ER, however monitor for agitation. Pt may benefit from meeting with legal recovery specialist. I spent minutes with the patient and/or on the patient floor today, greater than?50% of which was spent counseling/coordinating care. Patient educated on: diagnosis, medication risk/benefits and therapeutic strategies Reason for contiued inpatient stay Substantial Risk for: med/psych decompensation
[2022-06-30 06:00] VITALS: BP 116/78; PULSE 83; TEMP 36.6; O2SAT 98
[2022-06-30] MEDS: Thiamine HCL 100 MG TABLET PO (08:28)
[2022-06-30] MEDS: Cholecalciferol (Vitamin D3) 25 MCG TABLET PO (08:28)
[2022-06-30] MEDS: Dextroamphetamine/Amphetamine XR 10 MG CAP.ER.24H 30 MG PO (08:28)
[2022-06-30] MEDS: OXcarbazepine 300 MG TABLET PO (08:29)
[2022-06-30] MEDS: Multivitamin TABLET 1 TAB PO (08:29)
[2022-06-30] MEDS: ARIPiprazole 2 MG TABLET PO (08:29)
[2022-06-30] MEDS: methADONE HCl 20 MG/2 ML ORAL.CONC 130 MG PO (08:30)
[2022-06-30] MEDS: clonazePAM 1 MG TABLET PO ×3 (11:56→19:32)
--- NOTE | 2022-06-30 13:04 | HO.PSYCHPN ---
Subjective Subjective Date of Service: 06/30/22 Reason For Visit: Depression, Polysubstance use Subjective Notes: Conditional Voluntary Interim History: Chart reviewed. Discussed with Nursing. Overall reports feeling much improved mood. Less anxious. Sleep good. Happy with current medication regimen. Hopeful for discharge to substance programming. No SI. No HI. No agitation. No psychosis. Medication Compliance: Yes Side effects from medications: No Attending Groups: Yes Review of Systems Acute medical concerns: No Review of Systems Review of Systems Unremarkable Mental Status Exam Mental Status Exam Narrative: Pleasant and engaged. Organized. Euthymic. No SI. No HI. No psychosis. Insight and judgment okay Diagnostics Vital Signs (24Hr): Vital Signs - 24 hr 06/29/22 19:20 06/30/22 06:00 Temperature 98.1 F 97.9 F Pulse Rate 77 83 Respiratory Rate 14 Blood Pressure 117/69 116/78 Pulse Oximetry 98 Oxygen Delivery Method Room Air BMI result Body Mass Index 27.8 Labs Results: 06/25/22 10:53 06/25/22 10:53 Imaging Radiology Impressions: ITS Impressions Chest X-Ray 06/25/22 10:47 IMPRESSION: Unremarkable chest exam Medications Medications Current Medications Acetaminophen (Acetaminophen 325 Mg Tablet) 650 mg PO Q6H PRN PRN Reason: Headache/Pain Mild Scale (1-3) Al Hydroxide/Mg Hydroxide (Magnesium Hydrox/Alum Hydrox 30 Ml Oral.Susp) 30 ml PO Q6H PRN PRN Reason: Heartburn/Nausea Amphetamine/Dextroamphetamine (Dextroamphetamine/Amphetamine Xr 10 Mg Cap.Er.24h) 30 mg PO DAILY [facility] Last Admin: 06/30/22 08:28 Dose: 30 mg Aripiprazole (Aripiprazole 2 Mg Tablet) 2 mg PO DAILY [facility] Last Admin: 06/30/22 08:29 Dose: 2 mg Clonazepam (Clonazepam 1 Mg Tablet) 1 mg PO 1200,2100 [facility] Last Admin: 06/30/22 11:56 Dose: 1 mg Clonazepam (Clonazepam 1 Mg Tablet) 1 mg PO DAILY PRN PRN Reason: agitation, anxiety Last Admin: 06/29/22 14:04 Dose: 1 mg Hydroxyzine HCl (Hydroxyzine Hcl 50 Mg Tablet) 50 mg PO Q8H PRN PRN Reason: anxiety Last Admin: 06/26/22 19:10 Dose: 50 mg Magnesium Hydroxide (Milk Of Magnesia 30 Ml Oral.Susp) 30 ml PO DAILY PRN PRN Reason: Constipation Melatonin (Melatonin 3 Mg Tablet) 10 mg PO BEDTIME PRN PRN Reason: Insomnia Methadone HCl (Methadone Hcl 20 Mg/2 Ml Oral.Conc) 130 mg PO DAILY [facility] Last Admin: 06/30/22 08:30 Dose: 130 mg Mirtazapine (Mirtazapine 30 Mg Tablet) 30 mg PO BEDTIME [facility] Last Admin: 06/29/22 19:26 Dose: 30 mg Multivitamins/Vitamin C (Multivitamin Tablet) 1 tab PO DAILY [facility] Last Admin: 06/30/22 08:29 Dose: 1 tab Nicotine Polacrilex (Nicotine Polacrilex 2 Mg Gum) 2 mg BUCCAL Q1H PRN PRN Reason: Nicotine Cravings Oxcarbazepine (Oxcarbazepine 300 Mg Tablet) 300 mg PO DAILY [facility] Last Admin: 06/30/22 08:29 Dose: 300 mg Oxcarbazepine (Oxcarbazepine 300 Mg Tablet) 600 mg PO BEDTIME [facility] Last Admin: 06/29/22 19:26 Dose: 600 mg Prazosin HCl (Prazosin Hcl 1 Mg Capsule) 1 mg PO BEDTIME [facility]; Protocol Last Admin: 06/29/22 19:26 Dose: 1 mg Thiamine HCl (Thiamine Hcl 100 Mg Tablet) 100 mg PO DAILY [facility] Last Admin: 06/30/22 08:28 Dose: 100 mg Trazodone HCl (Trazodone Hcl 50 Mg Tablet) 50 mg PO BEDTIME PRN PRN Reason: Insomnia Last Admin: 06/29/22 19:26 Dose: 50 mg Vitamin D (Cholecalciferol (Vitamin D3) 25 Mcg Tablet) 25 mcg PO DAILY [facility] Last Admin: 06/30/22 08:28 Dose: 25 mcg Allergies Allergies Allergy/AdvReac Type Severity Reaction Status Date / Time trazodone AdvReac Intermediate Priaprism Verified 06/25/22 09:51 Assessment & Plan Assessment & Plan (1) Post traumatic stress disorder (PTSD): Status: Acute Code(s): F43.10 - Post-traumatic stress disorder, unspecified (2) Opioid dependence on agonist therapy: Status: Acute Code(s): F11.20 - Opioid dependence, uncomplicated (3) MDD (major depressive disorder), recurrent episode, severe: Status: Acute Code(s): F33.2 - Major depressive disorder, recurrent severe without psychotic features Plan 47 yo male, hx of PTSD, depression, polysubstance abuse, currently on Methadone maintenance, presents with SI, hx of attempt within the past month and off medications with no out pt alliances currently. Plan: Pt would like to return to addictions treatment upon discharge. Review of regime with pt to re-titrate regime used in January 2022 as pt reports efficacy. Collateral contacts Encourage full milieu, groups, coping skill work and addiction offerings. 06/28/22: Reporting some relief and improvement. Tolerating titration without adverse effects. Continue current plan Continue to encourage milieu involvement 06/30/2022: No changes to current treatment plan. I spent minutes with the patient and/or on the patient floor today, greater than?50% of which was spent counseling/coordinating care. Reason for contiued inpatient stay Substantial Risk for: rapid decompensation
[2022-06-30] MEDS: Nicotine Polacrilex 2 MG GUM BUCCAL (17:19)
[2022-06-30 19:25] VITALS: BP 119/62; PULSE 96
[2022-06-30] MEDS: Prazosin HCL 1 MG CAPSULE PO (19:32)
[2022-06-30] MEDS: Mirtazapine 30 MG TABLET PO (19:32)
[2022-06-30] MEDS: OXcarbazepine 300 MG TABLET 600 MG PO (19:33)
[2022-07-01 06:00] VITALS: BP 118/78; PULSE 83; TEMP 36.6; O2SAT 98
[2022-07-01] MEDS: Dextroamphetamine/Amphetamine XR 10 MG CAP.ER.24H 30 MG PO ×2 (07:55→14:09)
[2022-07-01] MEDS: ARIPiprazole 2 MG TABLET PO (07:55)
[2022-07-01] MEDS: Cholecalciferol (Vitamin D3) 25 MCG TABLET PO (07:55)
[2022-07-01] MEDS: OXcarbazepine 300 MG TABLET PO (07:55)
[2022-07-01] MEDS: Thiamine HCL 100 MG TABLET PO (07:56)
[2022-07-01] MEDS: methADONE HCl 20 MG/2 ML ORAL.CONC 130 MG PO (07:56)
[2022-07-01] MEDS: Multivitamin TABLET 1 TAB PO (07:56)
[2022-07-01] MEDS: clonazePAM 1 MG TABLET PO ×3 (11:01→19:50)
[2022-07-01] MEDS: Nicotine Polacrilex 2 MG GUM BUCCAL (11:26)
--- NOTE | 2022-07-01 17:44 | P.PNPSI_ITS ---
Subjective Subjective Date of Service: 07/01/22 Reason For Visit: Depression, Polysubstance use Subjective Notes: Conditional Voluntary Healthcare Proxy: No Guardianship: No Medical Problems Affecting Mental Status: No Interim History: Deng reports medications are working very well. He reviewed regime with Dr. Do and took suggestions for changes to be made with tw today which we will co mplete. He feels now he can go to rehab, focus, be less anxious and stressed and benefit from what the program has to offer, helping him to move forward in recovery. Reports some conflicts with peers who are intrusive on the unit (very active milieu at this time) however, he is attempting to remain conflict free. Prepared for discharge on 07/03 tentatively. Medication Compliance: Yes Side effects from medications: No Attending Groups: Yes Review of Systems Acute medical concerns: No Medical Review of Systems: unchanged Review of Systems Psychiatric: Reports no additional psychiatric complaints Mental Status Exam Mental Status Exam Patient Appearance: Appropriate Patient Orientation: Person, Place, Time and Situation Level of Consciousness: Alert Patient Behavior: Appropriate, Talkative, Cooperative and Good Eye Contact Mood Description: Apprehensive Affect Description: Apprehensive Patient Cognition Impaired: No Ability to Follow Directions: Good Speech Pattern: Spontaneous Speech Memory Description: Intact Hallucinations: None Delusions: Not Present Thought Process: Intact Thought Content: positive for Intact Depressive Symptoms: Crying Spells Abnormal Motor Activity Signs and Symptoms: Restlessness Judgement: Good Diagnostics Vital Signs (24Hr): Vital Signs - 24 hr 06/30/22 19:25 07/01/22 06:00 Temperature 97.8 F Pulse Rate 96 83 Blood Pressure 119/62 118/78 Pulse Oximetry 98 Oxygen Delivery Method Room Air BMI result Body Mass Index 27.8 Labs Results: 06/25/22 10:53 06/25/22 10:53 Imaging Radiology Impressions: ITS Impressions Chest X-Ray 06/25/22 10:47 IMPRESSION: Unremarkable chest exam Medications Medications Current Medications Acetaminophen (Acetaminophen 325 Mg Tablet) 650 mg PO Q6H PRN PRN Reason: Headache/Pain Mild Scale (1-3) Al Hydroxide/Mg Hydroxide (Magnesium Hydrox/Alum Hydrox 30 Ml Oral.Susp) 30 ml PO Q6H PRN PRN Reason: Heartburn/Nausea Amphetamine/Dextroamphetamine (Dextroamphetamine/Amphetamine Xr 10 Mg Cap.Er.24h) 30 mg PO 0700,1300 TITO Last Admin: 07/01/22 14:09 Dose: 30 mg Aripiprazole (Aripiprazole 2 Mg Tablet) 2 mg PO DAILY [facility] Last Admin: 07/01/22 07:55 Dose: 2 mg Clonazepam (Clonazepam 1 Mg Tablet) 1 mg PO TID [facility] Last Admin: 07/01/22 14:08 Dose: 1 mg Hydroxyzine HCl (Hydroxyzine Hcl 50 Mg Tablet) 50 mg PO Q8H PRN PRN Reason: anxiety Last Admin: 06/26/22 19:10 Dose: 50 mg Magnesium Hydroxide (Milk Of Magnesia 30 Ml Oral.Susp) 30 ml PO DAILY PRN PRN Reason: Constipation Melatonin (Melatonin 3 Mg Tablet) 10 mg PO BEDTIME PRN PRN Reason: Insomnia Methadone HCl (Methadone Hcl 20 Mg/2 Ml Oral.Conc) 130 mg PO DAILY [facility] Last Admin: 07/01/22 07:56 Dose: 130 mg Mirtazapine (Mirtazapine 30 Mg Tablet) 30 mg PO BEDTIME [facility] Last Admin: 06/30/22 19:32 Dose: 30 mg Multivitamins/Vitamin C (Multivitamin Tablet) 1 tab PO DAILY [facility] Last Admin: 07/01/22 07:56 Dose: 1 tab Nicotine Polacrilex (Nicotine Polacrilex 2 Mg Gum) 2 mg BUCCAL Q1H PRN PRN Reason: Nicotine Cravings Last Admin: 07/01/22 11:26 Dose: 2 mg Oxcarbazepine (Oxcarbazepine 300 Mg Tablet) 300 mg PO DAILY [facility] Last Admin: 07/01/22 07:55 Dose: 300 mg Oxcarbazepine (Oxcarbazepine 300 Mg Tablet) 600 mg PO BEDTIME [facility] Last Admin: 06/30/22 19:33 Dose: 600 mg Prazosin HCl (Prazosin Hcl 1 Mg Capsule) 1 mg PO BEDTIME [facility]; Protocol Last Admin: 06/30/22 19:32 Dose: 1 mg Thiamine HCl (Thiamine Hcl 100 Mg Tablet) 100 mg PO DAILY [facility] Last Admin: 07/01/22 07:56 Dose: 100 mg Trazodone HCl (Trazodone Hcl 50 Mg Tablet) 50 mg PO BEDTIME PRN PRN Reason: Insomnia Last Admin: 06/29/22 19:26 Dose: 50 mg Vitamin D (Cholecalciferol (Vitamin D3) 25 Mcg Tablet) 25 mcg PO DAILY [facility] Last Admin: 07/01/22 07:55 Dose: 25 mcg Allergies Allergies Allergy/AdvReac Type Severity Reaction Status Date / Time trazodone AdvReac Intermediate Priaprism Verified 06/25/22 09:51 Assessment & Plan Assessment & Plan (1) Post traumatic stress disorder (PTSD): Status: Acute Code(s): F43.10 - Post-traumatic stress disorder, unspecified (2) Opioid dependence on agonist therapy: Status: Acute Code(s): F11.20 - Opioid dependence, uncomplicated (3) MDD (major depressive disorder), recurrent episode, severe: Status: Acute Code(s): F33.2 - Major depressive disorder, recurrent severe without psychotic features Plan 47 yo male, hx of PTSD, depression, polysubstance abuse, currently on Methadone maintenance, presents with SI, hx of attempt within the past month and off medications with no out pt alliances currently. Plan: Pt would like to return to addictions treatment upon discharge. Review of regime with pt to re-titrate regime used in January 2022 as pt reports efficacy. Collateral contacts Encourage full milieu, groups, coping skill work and addiction offerings. 06/28/22: Reporting some relief and improvement. Tolerating titration without a dverse effects. ? Continue current plan ? Continue to encourage milieu involvement 06/29/22: Will add PRN klonopin but will not prescribe on discharge, pt has issues with roommate and klonopin may help with agitation and sleep. trial an increase in adderall ER, however monitor for agitation. Pt may benefit from meeting with coach operator. 07/01/22- Continue current regime I spent minutes with the patient and/or on the patient floor today, greater than?50% of which was spent counseling/coordinating care. Patient educated on: therapeutic strategies Informed Consent: understands Reason for contiued inpatient stay Substantial Risk for: rapid decompensation
[2022-07-01 18:00] VITALS: BP 149/75; PULSE 82; TEMP 36.6; O2SAT 98
[2022-07-01] MEDS: Prazosin HCL 1 MG CAPSULE PO (19:49)
[2022-07-01] MEDS: Mirtazapine 30 MG TABLET PO (19:49)
[2022-07-01] MEDS: OXcarbazepine 300 MG TABLET 600 MG PO (19:50)
[2022-07-02 06:00] VITALS: BP 125/75; PULSE 81; RESP 17; TEMP 36.2; O2SAT 97
[2022-07-02] MEDS: Dextroamphetamine/Amphetamine XR 10 MG CAP.ER.24H 30 MG PO ×2 (06:47→12:44)
[2022-07-02] MEDS: Thiamine HCL 100 MG TABLET PO (08:58)
[2022-07-02] MEDS: Cholecalciferol (Vitamin D3) 25 MCG TABLET PO (08:58)
[2022-07-02] MEDS: Multivitamin TABLET 1 TAB PO (08:58)
[2022-07-02] MEDS: ARIPiprazole 2 MG TABLET PO (08:58)
[2022-07-02] MEDS: clonazePAM 1 MG TABLET PO ×3 (08:58→19:51)
[2022-07-02] MEDS: OXcarbazepine 300 MG TABLET PO (08:58)
[2022-07-02] MEDS: methADONE HCl 20 MG/2 ML ORAL.CONC 130 MG PO (08:58)
--- NOTE | 2022-07-02 10:00 | ECG_ITS ---
Test Reason : STIMULANT USE Blood Pressure : / mmHG Vent. Rate : 074 BPM Atrial Rate : 074 BPM P-R Int : 154 ms QRS Dur : 098 ms QT Int : 422 ms P-R-T Axes : 062 -14 040 degrees QTc Int : 468 ms Normal sinus rhythm Normal ECG When compared with ECG of 25-JUN-2022 10:26, T wave inversion no longer evident in Inferior leads Referred By: Liliana Rizzo Electronically Signed By:CRISTIAN HUI
[2022-07-02 11:55] LABS: COVID-19 Test Negative (Negative); IDNOW Serial# 16C4AD1C
--- NOTE | 2022-07-02 15:53 | P.PNPSI_ITS ---
Subjective Subjective Date of Service: 07/02/22 Reason For Visit: Depression, Polysubstance use Subjective Notes: Conditional Voluntary Healthcare Proxy: No Guardianship: No Medical Problems Affecting Mental Status: No Interim History: Anxious about discharge. Altercation with a peer in the milieu-cried after this as he attempted to back off but felt responsible and blamed for the interaction. Discussed peer having nathan at this time and his actions not being judged but being looked at with regard as he was able to disengage from the conflict and talk with the team per their report. Medication Compliance: Yes Side effects from medications: No Attending Groups: Yes Review of Systems Acute medical concerns: No Medical Review of Systems: unchanged Review of Systems Psychiatric: Reports no additional psychiatric complaints Mental Status Exam Mental Status Exam Patient Appearance: Appropriate Patient Orientation: Person, Place, Time and Situation Level of Consciousness: Alert Patient Behavior: Appropriate, Talkative, Cooperative and Good Eye Contact Mood Description: Apprehensive Affect Description: Apprehensive Patient Cognition Impaired: No Ability to Follow Directions: Good Speech Pattern: Spontaneous Speech Memory Description: Intact Hallucinations: None Delusions: Not Present Thought Process: Intact Thought Content: positive for Intact Depressive Symptoms: Crying Spells Abnormal Motor Activity Signs and Symptoms: Restlessness Judgement: Good Diagnostics Vital Signs (24Hr): Vital Signs - 24 hr 07/01/22 18:00 07/02/22 06:00 Temperature 98 F 97.1 F Pulse Rate 82 81 Respiratory Rate 17 Blood Pressure 149/75 H 125/75 Pulse Oximetry 98 97 Oxygen Delivery Method Room Air BMI result Body Mass Index 27.8 Labs Results: 06/25/22 10:53 06/25/22 10:53 Labs: Laboratory Results - last 48 hr 07/02/22 11:30 COVID-19 (JENNIFER) Negative COVID-19 Clin Com See Note Imaging Radiology Impressions: ITS Impressions Chest X-Ray 06/25/22 10:47 IMPRESSION: Unremarkable chest exam Medications Medications Current Medications Acetaminophen (Acetaminophen 325 Mg Tablet) 650 mg PO Q6H PRN PRN Reason: Headache/Pain Mild Scale (1-3) Al Hydroxide/Mg Hydroxide (Magnesium Hydrox/Alum Hydrox 30 Ml Oral.Susp) 30 ml PO Q6H PRN PRN Reason: Heartburn/Nausea Amphetamine/Dextroamphetamine (Dextroamphetamine/Amphetamine Xr 10 Mg Cap.Er.24h) 30 mg PO 0700,1300 TITO Last Admin: 07/02/22 12:44 Dose: 30 mg Aripiprazole (Aripiprazole 2 Mg Tablet) 2 mg PO DAILY [facility] Last Admin: 07/02/22 08:58 Dose: 2 mg Clonazepam (Clonazepam 1 Mg Tablet) 1 mg PO TID [facility] Last Admin: 07/02/22 14:15 Dose: 1 mg Hydroxyzine HCl (Hydroxyzine Hcl 50 Mg Tablet) 50 mg PO Q8H PRN PRN Reason: anxiety Last Admin: 06/26/22 19:10 Dose: 50 mg Magnesium Hydroxide (Milk Of Magnesia 30 Ml Oral.Susp) 30 ml PO DAILY PRN PRN Reason: Constipation Melatonin (Melatonin 3 Mg Tablet) 10 mg PO BEDTIME PRN PRN Reason: Insomnia Methadone HCl (Methadone Hcl 20 Mg/2 Ml Oral.Conc) 130 mg PO DAILY [facility] Last Admin: 07/02/22 08:58 Dose: 130 mg Mirtazapine (Mirtazapine 30 Mg Tablet) 30 mg PO BEDTIME [facility] Last Admin: 07/01/22 19:49 Dose: 30 mg Multivitamins/Vitamin C (Multivitamin Tablet) 1 tab PO DAILY [facility] Last Admin: 07/02/22 08:58 Dose: 1 tab Nicotine Polacrilex (Nicotine Polacrilex 2 Mg Gum) 2 mg BUCCAL Q1H PRN PRN Reason: Nicotine Cravings Last Admin: 07/01/22 11:26 Dose: 2 mg Oxcarbazepine (Oxcarbazepine 300 Mg Tablet) 300 mg PO DAILY [facility] Last Admin: 07/02/22 08:58 Dose: 300 mg Oxcarbazepine (Oxcarbazepine 300 Mg Tablet) 600 mg PO BEDTIME TITO Last Admin: 07/01/22 19:50 Dose: 600 mg Prazosin HCl (Prazosin Hcl 1 Mg Capsule) 1 mg PO BEDTIME [facility]; Protocol Last Admin: 07/01/22 19:49 Dose: 1 mg Thiamine HCl (Thiamine Hcl 100 Mg Tablet) 100 mg PO DAILY [facility] Last Admin: 07/02/22 08:58 Dose: 100 mg Trazodone HCl (Trazodone Hcl 50 Mg Tablet) 50 mg PO BEDTIME PRN PRN Reason: Insomnia Last Admin: 06/29/22 19:26 Dose: 50 mg Vitamin D (Cholecalciferol (Vitamin D3) 25 Mcg Tablet) 25 mcg PO DAILY [facility] Last Admin: 07/02/22 08:58 Dose: 25 mcg Allergies Allergies Allergy/AdvReac Type Severity Reaction Status Date / Time trazodone AdvReac Intermediate Priaprism Verified 06/25/22 09:51 Assessment & Plan Assessment & Plan (1) Post traumatic stress disorder (PTSD): Status: Acute Code(s): F43.10 - Post-traumatic stress disorder, unspecified (2) Opioid dependence on agonist therapy: Status: Acute Code(s): F11.20 - Opioid dependence, uncomplicated (3) MDD (major depressive disorder), recurrent episode, severe: Status: Acute Code(s): F33.2 - Major depressive disorder, recurrent severe without psychotic features Plan 47 yo male, hx of PTSD, depression, polysubstance abuse, currently on Methadone maintenance, presents with SI, hx of attempt within the past month and off medications with no out pt alliances currently. Plan: Pt would like to return to addictions treatment upon discharge. Review of regime with pt to re-titrate regime used in January 2022 as pt reports efficacy. Collateral contacts Encourage full milieu, groups, coping skill work and addiction offerings. 06/28/22: Reporting some relief and improvement. Tolerating titration without adverse effects. ? Continue current plan ? Continue to encourage milieu involvement 06/29/22: Will add PRN klonopin but will not prescribe on discharge, pt has issues with roommate and klonopin may help with agitation and sleep. trial an increase in adderall ER, however monitor for agitation. Pt may benefit from meeting with debt recovery officer. 07/02/22 Discharge 07/03/22 I spent minutes with the patient and/or on the patient floor today, greater than?50% of which was spent counseling/coordinating care. Patient educated on: therapeutic strategies Informed Consent: understands and further education needed Reason for contiued inpatient stay Substantial Risk for: rapid decompensation
[2022-07-02 18:00] VITALS: BP 147/83; PULSE 84; RESP 18; TEMP 36.8
[2022-07-02] MEDS: Mirtazapine 30 MG TABLET PO (19:52)
[2022-07-02] MEDS: OXcarbazepine 300 MG TABLET 600 MG PO (19:52)
[2022-07-02] MEDS: Prazosin HCL 1 MG CAPSULE PO (19:52)
[2022-07-02] MEDS: Melatonin 3 MG TABLET 10 MG PO (19:53)
[2022-07-03 06:00] VITALS: BP 123/72; PULSE 76; RESP 16; TEMP 36.6; O2SAT 97
[2022-07-03] MEDS: Dextroamphetamine/Amphetamine XR 10 MG CAP.ER.24H 30 MG PO (06:45)
--- NOTE | 2022-07-03 08:37 | HE.PHANOTE ---
Addendum entered by Sosa Mccray [facility] 07/03/22 11:46: Documentation was received. Half the syringe was wasted to acquire 10mg. Witness has signed as well. Original Note: Dispensing Received a doug from JAGUAR Crabtree. Patient had a dose of 130mg methadone syringes, 7 syringes were pulled for a dose of 140mg. Nurse was to waste 1 ml in 1 of the syringes to make the 130mg however she wasted the whole thing. I did a patient specific send of 1 methadone syringe up to the floor. Nurse is to fill out the form that states shes giving the patient 1 ml and wasting the other 1 ml to finish the dose of 130mg.Witness is needed.
[2022-07-03] MEDS: ARIPiprazole 2 MG TABLET PO (09:09)
[2022-07-03] MEDS: clonazePAM 1 MG TABLET PO (09:09)
[2022-07-03] MEDS: OXcarbazepine 300 MG TABLET PO (09:09)
[2022-07-03] MEDS: Thiamine HCL 100 MG TABLET PO (09:09)
[2022-07-03] MEDS: Cholecalciferol (Vitamin D3) 25 MCG TABLET PO (09:09)
[2022-07-03] MEDS: methADONE HCl 20 MG/2 ML ORAL.CONC 130 MG PO (09:09)
[2022-07-03] MEDS: Multivitamin TABLET 1 TAB PO (09:09)
--- NOTE | 2022-07-03 11:38 | PC.NURSE ---
Pt was given Methadone 130 mg of Methadone at 0909. Prior to administration t/w upon witness by Irish Forbes RN wasted 20mg/2 mL instead of the correct amount 10mg/1mL. Pharmacy was called and notified. Resolved with Pharmacy and Irish Forbes RN was again the witness for waste.
--- NOTE | 2022-07-03 16:42 | PM.PSYDC ---
DS: Providers Provider Date of Service: 07/03/22 Date of admission: 06/25/22 22:46 Date of discharge: 07/03/22 Primary care physician: Eulalio Physician Admitting clinician: Liliana Rizzo Attending physician on admission: Jonathon Moura Attending physician on discharge: Jonathon Moura Discharging clinician: Liliana Rizzo DS: Diagnosis Discharge Diagnosis (1) Post traumatic stress disorder (PTSD): Status: Acute (2) Opioid dependence on agonist therapy: Status: Acute (3) MDD (major depressive disorder), recurrent episode, severe: Status: Acute DS: Medications Discharge Medications Home Medications: Home Medications Medication Instructions Recorded Confirmed methadone 10 mg tablet 130 mg PO DAILY 01/30/22 06/25/22 Previous Rx's Medication Instructions Recorded aripiprazole 2 mg tablet (Abilify) 2 mg PO DAILY #30 tabs 07/02/22 cholecalciferol (vitamin D3) 25 25 mcg PO DAILY #30 tabs 07/02/22 mcg (1,000 unit) tablet clonazepam 1 mg tablet 1 mg PO TID #21 tabs 07/02/22 dextroamphetamine-amphetamine ER 30 mg PO BID #60 caps 07/02/22 30 mg 24hr capsule,extend release (Adderall XR) hydroxyzine HCl 50 mg tablet 50 mg PO TID PRN Anxiety 30 days 07/02/22 #90 tabs melatonin 10 mg tablet 10 mg PO BEDTIME PRN sleep 30 days 07/02/22 #30 tabs mirtazapine 30 mg tablet 30 mg PO BEDTIME 30 days #30 tabs 07/02/22 multivitamin (Daily-Daniel tablet) 1 tab PO DAILY #30 tabs 07/02/22 naloxone 4 mg/actuation nasal 4 mg intranasal Q2M PRN opioid 07/02/22 spray (Narcan) overdose #2 ea nicotine (polacrilex) 2 mg gum 2 mg buccal Q2H PRN Nicotine 07/02/22 Cravings 30 days #100 ea oxcarbazepine 300 mg tablet See Rx Instructions .Route 07/02/22 .COMPLEX 30 days #90 tabs prazosin 1 mg capsule 1 mg PO BEDTIME 30 days #30 caps 07/02/22 thiamine mononitrate (vit B1) 100 100 mg PO DAILY #30 tabs 08/09/22 mg tablet Mental Status Exam Mental Status Exam Patient Appearance: Appropriate Patient Orientation: Person, Place, Time and Situation Level of Consciousness: Alert Patient Behavior: Appropriate, Talkative, Cooperative and Good Eye Contact Mood Description: Apprehensive Affect Description: Apprehensive Patient Cognition Impaired: No Ability to Follow Directions: Good Speech Pattern: Spontaneous Speech Memory Description: Intact Hallucinations: None Delusions: Not Present Thought Process: Intact Thought Content: positive for Intact Depressive Symptoms: Crying Spells Abnormal Motor Activity Signs and Symptoms: Restlessness Judgement: Good Data Data Completed and Pending Completed studies during hospitalization [Text1]: 07/02/22 11:30 COVID-19 (JENNIFER) Negative COVID-19 Clin Com See Note Imaging Diagnostic Imaging Impressions Chest X-Ray 06/25/22 10:47 IMPRESSION: Unremarkable chest exam DS: Summary Hospital Course Hospital Course: Admission to adult psychiatry for exacerbation of symptoms of recurrent major depression, PTSD and opiate use disorder. Adjustments were made in Abilify and Adderall dosing. Remeron and Trileptal were continued, Klonopin was adjusted. Prazosin was added. Pt will transition to a residential program and hopes to transfer to a longer term residential program when he completes the inital program. Time spent discussing smoking cessation with patient: 3 to 10 minutes Status at Discharge Functional status at discharge: independent ambulation Overall status at discharge: patient is back to baseline Time Spent with Patient Time attestation: Total time spent providing and/or coordinating discharge services: 40 Time spent: Greater than 30 minutes Discharge Plan Discharge Patient Disposition: Xfer Inpatient Rehab Fac Discharge Diagnosis: Recurrent Major Depression Opiate Use Disorder PTSD Referrals: Community Stabilization Services: Mendy Tovar [Other] - 07/03/22 11:00 am (You have been accepted to Mendy Tovar[facility] for continued substance use treatment) [facility] Tank Tender: Xi Shirley [Other] - 1 Week (Please contact Xi at the above number if you change your mind and are interested in care coordination through [facility]. Your referral is open until July) Discharge Medications: New multivitamin [Daily-Daniel] Tablet 1 tab PO DAILY Qty: 30 1RF clonazepam 1 mg Tablet 1 mg PO TID Qty: 21 4RF aripiprazole [Abilify] 2 mg Tablet 2 mg PO DAILY Qty: 30 0RF cholecalciferol (vitamin D3) 25 mcg (1,000 unit) Tablet 25 mcg PO DAILY Qty: 30 1RF thiamine mononitrate (vit B1) 100 mg Tablet 100 mg PO DAILY Qty: 30 1RF naloxone [Narcan] 4 mg/actuation spray,non-aerosol 4 mg intranasal Q2M PRN (Reason: opioid overdose) Qty: 2 0RF Rx Instructions: spray 1 dose into ONE nostril; alternate nostrils w each dose until help arrives dextroamphetamine-amphetamine [Adderall XR] 30 mg capsule,extended release 24hr 30 mg PO BID Qty: 60 0RF Rx Instructions: Partial Fill upon patient request. Continued nicotine (polacrilex) 2 mg Gum 2 mg buccal Q2H PRN (Reason: Nicotine Cravings) 30 Days Qty: 100 1RF Label Comments: Not taken at pharmacy offered by pt prazosin 1 mg Capsule 1 mg PO BEDTIME 30 Days Qty: 30 1RF Protocol: Hold for SBP< HOLD for SBP < : 90 Label Comments: last picked up 05/23/2022 per pharmacy hydroxyzine HCl 50 mg Tablet 50 mg PO TID PRN (Reason: Anxiety) 30 Days Qty: 90 1RF Label Comments: last picked up in February per pharmacy oxcarbazepine 300 mg Tablet See Rx Instructions .ROUTE .COMPLEX 30 Days Qty: 90 1RF Label Comments: last picked up 05/23/2022 per pharmacy Rx Instructions: take 1 tab in the morning and take 2 tabs at bedtime mirtazapine 30 mg Tablet 30 mg PO BEDTIME 30 Days Qty: 30 1RF Label Comments: last picked up 05/23/2022 per pharmacy melatonin 10 mg tablet 10 mg PO BEDTIME PRN (Reason: sleep) 30 Days Qty: 30 1RF Label Comments: never picked up per pharmacy methadone 10 mg Tablet 130 mg PO DAILY Discontinued aripiprazole 2 mg PO DAILY Label Comments: last picked up 05/23/2022 per pharmacy clonazepam 1 mg tablet 1 mg PO DAILY PRN (Reason: anxiety) 4 Days Qty: 4 0RF Label Comments: last picked up 02/07/22 per pharmacy Rx Instructions: take 1/2 to 1 tab daily as needed for panic dextroamphetamine-amphetamine 20 mg capsule,extended release 24hr 20 mg PO DAILY 7 Days Qty: 7 0RF Label Comments: last picked up 05/23/22 per pharmacy Discharge Orders: Discharge Order (Routine); Ordered 07/03/22 Ordered By: Liliana Rizzo Diet: Advance to usual diet Activity on Discharge: As tolerated Stand Alone Forms: Patient Portal Discharge page Care Plan Goals: Mood Stabilization Work on Sobriety Health Concerns: Recurrent Major Depression PTSD Opiate Use Disorder Plan of Treatment: Attend follow up appointments Take Medications as directed Work on coping skills Work on sobriety skills Assessment: non-suicidal, non-psychotic Discharge Date/Time: 07/03/22 11:25
== END 2022-07-03 11:25 | DRG 751 ==
LOC: HO.ED 11:49 → HO.PM5 22:56
PROVIDERS: Social Worker; Admitting Provider Registered Nurse; Emergency Provider Emergency Medicine; Visit Provider Clinical Nurse Specialist Psychiatric/Mental Health, Adult
DX: F33.2 Major depressive disorder, recurrent severe without psychotic features (principal); R45.851 Suicidal ideations; F43.10 Post-traumatic stress disorder, unspecified; F11.20 Opioid dependence, uncomplicated; F63.81 Intermittent explosive disorder; Z20.822 Contact with and (suspected) exposure to COVID-19; F17.210 Nicotine dependence, cigarettes, uncomplicated; Z71.6 Tobacco abuse counseling; Z79.899 Other long term (current) drug therapy
CPT/HCPCS: 36415; 71045; 80048; 80061; 80307; 81003; 82607; 82746; 83036; 83735; 83880; 84439; 84443; 84484; 85025; 87635; 93005; 99285

== ENCOUNTER 2022-11-24 07:58 | Inpatient (IN) | payer OTHER, SELFPAY ==
--- NOTE | ~2022-11-24 | CT_ITS ---
EXAMINATION: CT SOFT TISSUE NECK WITHOUT CONTRAST CLINICAL INFORMATION: Injection in the right side of neck. Missing needle. COMPARISON: There are no prior studies available for comparison. TECHNIQUE: Helical imaging was performed in the axial plane with generation of coronal and sagittal reformatted images. This CT examination was performed using dose optimization techniques as appropriate, variously including the following: *Automated exposure control *Adjustment of mA and/or kV according to patient size (this includes techniques or standardized protocols for targeted exams where dose is matched to indication/reason for exam; i.e. extremities or head) *Use of iterative reconstruction technique DLP: 685 mGy-cm FINDINGS: There is no cervical lymphadenopathy. No radiodense/metallic objects are demonstrated in the visualized head, neck and upper chest. The parotid glands are homogeneous in attenuation. The submandibular glands are normal. No contour abnormality or pathologic enhancement is seen within the oral cavity or pharyngeal mucosal space. The laryngeal structures are normal. There is no calcified atheromatous change in the vessels of the upper chest and neck. The parapharyngeal fat is preserved. No extramucosal soft tissue mass or fluid collection is seen. No retropharyngeal fluid collection is seen. The thyroid gland is normal. The superior mediastinum is unremarkable. The lung apices are clear. The mastoid air cells and visualized portions of the paranasal sinuses are well-aerated. The temporomandibular joints are normal. The nasal septum is deviated to the left with a left-sided bony nasal septal spur. The patient is edentulous in the maxilla. There are no periapical lucencies in the mandible. There is nonspecific reversal of the alignment of the cervical spine vertebral bodies, with multilevel narrowing of intervertebral disc height, consistent with chronic changes. Limited intracranial evaluation is unremarkable. The visualized orbits are normal. CT/CT soft tissue neck wo IV con IMPRESSION: 1. There is no cervical lymphadenopathy and no masses are demonstrated in the neck. 2. No radiodense/metallic objects are demonstrated in the visualized head, neck and upper chest. 3. Evaluation of the vessels is slightly suboptimal due to lack of intravenous contrast.
--- NOTE | ~2022-11-24 | XR_ITS ---
EXAMINATION: XR chest 2V CLINICAL INFORMATION: Reason for Exam cough, post covid, r/p pneumonia COMPARISON: Prior chest x-ray 06/25/2022 TECHNIQUE: XR chest 2V Lungs and Ivy: Both lungs are clear. Pleura: Normal. Costophrenic angles are sharp. No pneumothorax. Heart: The heart is normal in size. Mediastinum: The mediastinum is within normal limits.. Bones: Skeletal structures included are normal for patient's age. XR/XR chest 2V IMPRESSION: No radiographic evidence of acute infiltrates or failure.
[2022-11-24 08:09] VITALS: BP 124/76; BP 132/76; PULSE 69; PULSE 74; RESP 16; TEMP 37.1; O2SAT 94; O2SAT 96; BMI 26.6
--- NOTE | 2022-11-24 08:36 | ED_ITS ---
HPI - General Adult General Chief complaint: ETOH/Substance Use Stated complaint: neck pain Time Seen by Provider: 11/24/22 08:20 Source: patient Mode of arrival: ambulatory Limitations: no limitations History of Present Illness HPI narrative: 47-year-old male IV drug abuser, homeless injected in the right side of his neck in a gas station bathroom, could not find the needle after he injected himself thinks that he broke the needle inside his neck. Patient also feels depressed with SI but no plans. No fever, no chills, no swelling, no redness or bleeding from the neck. Related Data Home Medications Medication Instructions Recorded Confirmed methadone 10 mg/mL oral concentrate 70 mg PO DAILY 11/24/22 11/24/22 Previous Rx's Medication Instructions Recorded aripiprazole 2 mg tablet (Abilify) 2 mg PO DAILY #30 tabs 07/02/22 cholecalciferol (vitamin D3) 25 25 mcg PO DAILY #30 tabs 07/02/22 mcg (1,000 unit) tablet clonazepam 1 mg tablet 1 mg PO TID #21 tabs 07/02/22 dextroamphetamine-amphetamine ER 30 mg PO BID #60 caps 07/02/22 30 mg 24hr capsule,extend release (Adderall XR) hydroxyzine HCl 50 mg tablet 50 mg PO TID PRN Anxiety 30 days 07/02/22 #90 tabs melatonin 10 mg tablet 10 mg PO BEDTIME PRN sleep 30 days 07/02/22 #30 tabs mirtazapine 30 mg tablet 30 mg PO BEDTIME 30 days #30 tabs 07/02/22 multivitamin (Daily-Daniel tablet) 1 tab PO DAILY #30 tabs 07/02/22 naloxone 4 mg/actuation nasal 4 mg intranasal Q2M PRN opioid 07/02/22 spray (Narcan) overdose #2 ea nicotine (polacrilex) 2 mg gum 2 mg buccal Q2H PRN Nicotine 07/02/22 Cravings 30 days #100 ea oxcarbazepine 300 mg tablet See Rx Instructions .Route 07/02/22 .COMPLEX 30 days #90 tabs prazosin 1 mg capsule 1 mg PO BEDTIME 30 days #30 caps 07/02/22 thiamine mononitrate (vit B1) 100 100 mg PO DAILY #30 tabs 07/02/22 mg tablet Allergies Allergy/AdvReac Type Severity Reaction Status Date / Time trazodone AdvReac Intermediate Priaprism Verified 06/25/22 09:51 Review of Systems Review of Systems: All other systems are reviewed and are negative Constitutional: Reports as per HPI and Reports no additional constitutional complaints Eyes: Reports as per HPI and Reports no additional eye complaints Reports system reviewed and no additional complaints, except as documented Cardiovascular: Reports as per HPI and Reports no additional cardiovascular complaints Respiratory: Reports as per HPI and Reports no additional respiratory complaints Gastrointestinal: Reports as per HPI and Reports no additional gastrointestinal complaints Genitourinary: Reports no additional female genitourinary complaints Musculoskeletal: Reports no additional musculoskeletal complaints Skin/Breast: Reports system reviewed and no additional complaints, except as docu Psychiatric: Reports no additional psychiatric complaints Endocrine: Reports no additional endocrine complaints Hematologic/Lymphatic: Reports no additional hematologic/lymphatic complaints Allergic/Immunologic: Reports no additional allergic/immunologic complaints Reports system reviewed and no additional complaints, except as documented and Reports Abnormal speech present [facility] Past Medical History Medical History Intermittent explosive disorder MDD (major depressive disorder), recurrent episode, severe Opioid dependence on agonist therapy Social History Social History Household Members: None Housing: Homeless Do you presently have visiting nurse or other home services: No Alcohol intake: former Patient Tobacco Use Status: Current everyday Tobacco user Tobacco use type: Cigarette Cigarette Packs Per Day: 1 Cigarettes Per Day: 20.0 Years Smoked: 38 Smoked in Last 30 Days: Yes e-Cigarette/Vaping Use: Never Used Second Hand Smoke Exposure: Yes Use of substances other than those prescribed or required for medical reasons: Yes Substance Use Type: Crack/Cocaine and Heroin Last Used Substance: Hours (ago) Advance Directives: No Advance Directives Information Provided: No service: No Sexual orientation: Did not discuss Physical Exam ED Vital Signs: Vital Signs - 24 hr 11/24/22 08:09 11/24/22 09:21 Temperature 98.7 F 97.8 F Pulse Rate 69 73 Respiratory Rate 16 16 Blood Pressure 124/76 121/58 L Pulse Oximetry 96 96 Oxygen Delivery Method Room Air Room Air BMI result Body Mass Index 26.6 Vital signs have been reviewed as appeared to be correct. Blood pressure normal. Heart rate normal. Respiration rate normal. Temperature normal. Oxygen saturation normal. Appearance: Alert. Oriented X3. No acute distress. Head: Normal external exam. Normocephalic. Atraumatic. No Menjivar signs noted. No raccoon eyes noted Eyes: PERRLA. EOMI. Conjunctiva and sclera normal. Eyelids normal. ENT: TM's Normal. Pharynx normal. Uvula midline. Moist mucous membranes. No trismus noted. No drooling noted. No muffled voice noted. Neck: Normal inspection. Neck supple. FROM. No adenopathy. Thyroid Normal. No meningeal signs. No neck mass noted. CVS: Normal heart rate and rhythm. Heart sound normal. No murmurs noted. Pulses normal throughout. Respiratory: No respiratory distress. Painless inspiration. Breath sounds normal. No wheezes/rales/rhonchi noted. Chest nontender. No accessory muscle usage noted or decreased air movement noted. Abdomen: Soft and nontender. Bowel sounds normal in all 4 quadrants. No distention noted. No organomegaly noted. No visible injury noted. Back: No CVA tenderness. Full range of motion noted. Skin: Skin warm and dry. Normal skin color. Normal skin turgor. No rashes/lesions/lacerations noted. Extremities: No lower extremity edema. Extremities exhibit normal range of motion. Extremities nontender. Neuro: Oriented X 3. Cranial nerve exam: II-XII are grossly intact No motor deficit. No sensory deficit. Reflexes normal. Course Course Course Narrative: Patient had a CT of the neck which shows no foreign body, patient will be evaluated by care team for SI. Reevaluation(s) Reevaluation #1: Patient will be admitted to psych as an inpatient for SI and depression, bed search is underway, patient is under physician observation started now. Time: 14:16 Medical Decision Making Differential Diagnosis Differential Diagnoses: The differential diagnosis associated with the presentation includes (IV drug abusing/broken needle in the soft tissue or venous system of the neck/depression/SI) Independent Interpretation I performed an independent interpretation of an: CT Scan (Soft tissue of the neck: No foreign body is appreciated) Radiology Impression Discussion of test interpretation with radiology: I have reviewed the radiologist's reading. Discharge Plan Discharge Clinical Impression: Substance abuse, Anxiety, Depression Patient Disposition: Admitted As Inpatient Prescriptions: No Action multivitamin [Daily-Daniel] Tablet 1 tab PO DAILY Qty: 30 1RF clonazepam 1 mg Tablet 1 mg PO TID Qty: 21 4RF aripiprazole [Abilify] 2 mg Tablet 2 mg PO DAILY Qty: 30 0RF cholecalciferol (vitamin D3) 25 mcg (1,000 unit) Tablet 25 mcg PO DAILY Qty: 30 1RF thiamine mononitrate (vit B1) 100 mg Tablet 100 mg PO DAILY Qty: 30 1RF nicotine (polacrilex) 2 mg Gum 2 mg buccal Q2H PRN (Reason: Nicotine Cravings) 30 Days Qty: 100 1RF Label Comments: Not taken at pharmacy offered by pt prazosin 1 mg Capsule 1 mg PO BEDTIME 30 Days Qty: 30 1RF Protocol: Hold for SBP< HOLD for SBP < : 90 Label Comments: last picked up 05/23/2022 per pharmacy hydroxyzine HCl 50 mg Tablet 50 mg PO TID PRN (Reason: Anxiety) 30 Days Qty: 90 1RF Label Comments: last picked up in February per pharmacy oxcarbazepine 300 mg Tablet See Rx Instructions .ROUTE .COMPLEX 30 Days Qty: 90 1RF Label Comments: last picked up 05/23/2022 per pharmacy Rx Instructions: take 1 tab in the morning and take 2 tabs at bedtime mirtazapine 30 mg Tablet 30 mg PO BEDTIME 30 Days Qty: 30 1RF Label Comments: last picked up 05/23/2022 per pharmacy melatonin 10 mg tablet 10 mg PO BEDTIME PRN (Reason: sleep) 30 Days Qty: 30 1RF Label Comments: never picked up per pharmacy naloxone [Narcan] 4 mg/actuation spray,non-aerosol 4 mg intranasal Q2M PRN (Reason: opioid overdose) Qty: 2 0RF Rx Instructions: spray 1 dose into ONE nostril; alternate nostrils w each dose until help arrives dextroamphetamine-amphetamine [Adderall XR] 30 mg capsule,extended release 24hr 30 mg PO BID Qty: 60 0RF Rx Instructions: Partial Fill upon patient request. methadone 10 mg/mL Concentrate 70 mg PO DAILY Interventions: [place]-Suicide Risk Severity Scale Last Done: 11/24/22 08:14
[2022-11-24 09:21] VITALS: BP 121/58; PULSE 73; RESP 16; TEMP 36.6; O2SAT 96
--- NOTE | 2022-11-24 09:30 | PC.NURSE ---
Patient a/ox4 . shelby . heart rate regular at 78 beats per minute . breathing even and unlabored . lungs clear throughout . upper extremities have scabs in various stages due to IV drug use . Abdomen is soft , positive bowel sounds in all four quadrants . patient has been to [facility] for images . patient has made S.I. statements with plan to overdose intentionally . 1-1 observation at this time . patient aware of plan of care .
--- NOTE | 2022-11-24 10:53 | PC.NURSE ---
Monica from care team at bedside for consult for detox . patient given phone to contact Mendy rojas . patient aware of plan of care .
--- NOTE | 2022-11-24 11:45 | PC.NURSE ---
Addendum entered by Migdalia Garcia 11/24/22 11:47: pt is in bed 8. Original Note: rn to rn report receive from yajaira hanson. pt is in bed 7.
--- NOTE | 2022-11-24 12:12 | PC.NURSE ---
assistant coach at bedside, pt aware of plan of care.
--- NOTE | 2022-11-24 12:14 | MHC.RECOVSUP ---
? Reason for consult Recovery Support o Current location: [facility] o Identified substance use concern: Heroin - Seeking ATS (detox) - Support ? Intervention: o Community resources provided o Harm reduction discussion ? Plan: o Bed search in progress to o Follow up tomorrow o Patient awaiting crisis evaluation o Patient to follow up with [facility] after discharge ? Additional information: Met with Patient and we talked about Programs, Peer support, and Harm reduction.. Patient stated that They do want to go to detox, but his mental be messing with him.. that he just left detox.. I met with care team and for next leave of plan..
--- NOTE | 2022-11-24 14:12 | PC.NURSE ---
care team ([facility]) at bedside, pt aware of plan of care.
--- NOTE | 2022-11-24 14:15 | ECG_ITS ---
Test Reason : MED CLEARANCE Blood Pressure : / mmHG Vent. Rate : 067 BPM Atrial Rate : 067 BPM P-R Int : 140 ms QRS Dur : 096 ms QT Int : 364 ms P-R-T Axes : 058 -16 003 degrees QTc Int : 384 ms Normal sinus rhythm Incomplete right bundle branch block Nonspecific T wave abnormality Abnormal ECG When compared with ECG of 02-JUL-2022 11:32, Nonspecific T wave abnormality now evident in Inferior leads Nonspecific T wave abnormality now evident in Anterolateral leads QT has shortened Referred By: Bailee Paris Electronically Signed By:PAM WATTERS MD
--- NOTE | 2022-11-24 14:17 | HE.PHANOTE ---
RECEIVED METHADONE VERIFICATION FORM FROM [facility] [id number]
[2022-11-24 14:26] VITALS: BP 138/60; PULSE 67; RESP 16; TEMP 37.2; O2SAT 96
--- NOTE | 2022-11-24 14:28 | PHA.MEDREC ---
Pharmacy Consult ? Medication Reconciliation Pharmacy has completed the medication reconciliation. Patient knew all medications and drug regimens. Verified PDMP for controls. [facility] is primary pharmacy.
[2022-11-24 15:30] LABS: MANUAL DIFF FLAG NO
[2022-11-24 15:41] LABS: Basophils Percent Auto 0.3 % (0-2); Eosinophils Absolute Auto 0.2 X10*3/uL (0.0-0.4); Eosinophils Percent Auto 1.7 % (0-4); Hematocrit 40.7 % (42.0-52.0); Hemoglobin 13.6 g/dl (14.0-18.0); Imm Gran Abs Auto 0.02 X10*3/uL (0.00-0.03); Imm Gran Pct Auto 0.2 % (0.0-0.4); Lymphocytes Percent Auto 21.5 % (20-40); Mean Corpuscular HGB Conc 33.4 g/dl (31.0-36.0); Mean Corpuscular Hemoglobin 28.6 pg (27.0-33.0); Mean Corpuscular Volume 85.7 fL (80.0-98.0); Mean Platelet Volume 8.7 fL (9.4-12.4); Monocytes Absolute Auto 0.7 X10*3/uL (0.1-1.2); Neutrophils Absolute Auto 6.6 x10*3/uL (2.0-8.3); Neutrophils Percent Auto 69.3 % (45-73); Platelet Count 194 X10*3/uL (160-400); Red Blood Count 4.75 X10*6/uL (4.60-5.80); White Blood Count 9.5 X10*3/uL (4.8-10.8)
[2022-11-24 15:47] LABS: Amphetamine Screen Urine Not Detected (Not Detect); Barbiturates, Urine Not Detected (Not Detect); Benzodiazepines Screen Urine Not Detected (Not Detect); Cannabinoid Screen Urine POSITIVE (Not Detect); Cocaine Screen Urine POSITIVE (Not Detect); Fentanyl, urine POSITIVE (Not Detect); Opiate Screen Urine POSITIVE (Not Detect); Phencyclidine Screen Urine Not Detected (Not Detect)
[2022-11-24 15:49] LABS: Appearance Urine Clear; Color Urine Yellow; Glucose Urine UA Negative (Negative); Leukocyte Esterase Urine Negative (Negative); Nitrite Urine Negative (Negative); Urine Blood Negative (Negative); Urine Ketones Negative (Negative); Urine Protein Negative (Neg-Trace)
[2022-11-24 15:51] LABS: COVID-19 Test Negative (Negative); IDNOW Serial# BCCEAD1C
[2022-11-24 15:59] LABS: Alanine Aminotransferase 68 U/L (0-40); Albumin Level 3.8 g/dL (3.5-5.0); Alkaline Phosphatase 88 U/L (39-117); Anion Gap 10 (12-20); Aspartate Amino Transferase 35 U/L (5-37); Bilirubin Direct 0.2 mg/dL (0.0-0.5); Bilirubin Total 0.7 mg/dL (0.0-1.0); Blood Urea Nitrogen 18 mg/dL (9-16); Calcium 8.6 mg/dL (8.4-10.2); Carbon Dioxide 28 mmol/L (22-29); Chloride 104 mmol/L (96-108); Creatinine Clr Calc Pharmacy 112.9; Estimated Glomerular Filt Rate > 60; Glucose Random 111 mg/dL (60-115); Lipase 35 U/L (8-78); Potassium 3.8 mmol/L (3.3-5.1); Sodium 138 mmol/L (135-145); Total Protein 6.5 g/dL (6.5-8.0)
[2022-11-24] MEDS: methADONE HCl 20 MG/2 ML ORAL.CONC 70 MG PO (17:06)
[2022-11-24 18:00] VITALS: BP 132/68; PULSE 84; RESP 16; TEMP 36.6; O2SAT 97
--- NOTE | 2022-11-24 18:52 | PC.ADMIT ---
Pt is a 47 year-old single male who presented to [facility] via EMS after he called 911 from a gas station injected in the right side of his neck in a gas station bathroom, could not find the needle after he injected himself thinks that he broke the needle inside his neck and endorsed SI upon triage.? Pt reports he was recently discharged from [facility] and suicidal with multiple plans. Pt reports a depressed and anxious? mood.? Pt reports ongoing suicidal ideation and feelings of hopelessness and worthlessness.? Pt reports feeling like he did a few months when he overdosed on medication. Pt has had multiple behavioral health intervention; IPLOC, CSS, and ATS? and theorized to struggle with follow up with discharge planning resulting in decompensation and exacerbation in SI.?He is currently a client at the [facility] Methadone clinic. His daily dose was verified in [facility]. On admission he is denying active SI at this time. He was compliant with the admission process.
[2022-11-24] MEDS: clonazePAM 0.5 MG TABLET PO ×2 (19:18→22:30)
[2022-11-24] MEDS: Dextroamphetamine/Amphetamine XR 10 MG CAP.ER.24H 30 MG PO (22:23)
[2022-11-24] MEDS: Mirtazapine 30 MG TABLET PO (22:23)
[2022-11-24] MEDS: Gabapentin 300 MG CAPSULE PO (22:23)
[2022-11-24] MEDS: OXcarbazepine 300 MG TABLET 600 MG PO (22:30)
[2022-11-24] MEDS: Prazosin HCL 1 MG CAPSULE PO (22:30)
[2022-11-25 08:11] LABS: Estimated Average Glucose 97 mg/dL
[2022-11-25 08:18] LABS: Cholesterol 129 mg/dL; HDL Cholesterol 37 mg/dL; LDL Cholesterol Calculated 82 mg/dl; Magnesium 2.1 mg/dL (1.6-2.6); Triglycerides 52 mg/dL
[2022-11-25 08:25] VITALS: BP 110/69; PULSE 76; RESP 18; TEMP 36.6; O2SAT 98
[2022-11-25 08:35] LABS: Free T4 (Free Thyroxine) 1.04 ng/dL (0.71-1.85); Thyroid Stimulating Hormone 0.88 uIU/mL (0.32-4.0)
[2022-11-25] MEDS: Gabapentin 300 MG CAPSULE PO ×2 (08:35→21:08)
[2022-11-25] MEDS: methADONE HCl 20 MG/2 ML ORAL.CONC 70 MG PO (08:35)
[2022-11-25] MEDS: OXcarbazepine 300 MG TABLET PO (08:35)
[2022-11-25] MEDS: Thiamine HCL 100 MG TABLET PO (08:35)
[2022-11-25] MEDS: Dextroamphetamine/Amphetamine XR 10 MG CAP.ER.24H 30 MG PO (08:35)
[2022-11-25] MEDS: ARIPiprazole 2 MG TABLET PO (08:35)
[2022-11-25] MEDS: clonazePAM 1 MG TABLET PO ×2 (08:35→17:00)
[2022-11-25 08:47] LABS: Vitamin B12 535 pg/mL (200-900)
[2022-11-25] MEDS: Amphetamine Mixed Salts 20 MG TABLET 30 MG PO (12:29)
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
[2022-11-25 20:55] VITALS: BP 125/71; PULSE 76; TEMP 36.2
[2022-11-25] MEDS: Prazosin HCL 1 MG CAPSULE PO (21:06)
[2022-11-25] MEDS: Mirtazapine 30 MG TABLET PO (21:07)
[2022-11-25] MEDS: OXcarbazepine 300 MG TABLET 600 MG PO (21:07)
[2022-11-26 09:23] VITALS: BP 126/64; PULSE 60; RESP 16; TEMP 36.8; O2SAT 99
[2022-11-26] MEDS: methADONE HCl 20 MG/2 ML ORAL.CONC 70 MG PO (09:25)
[2022-11-26] MEDS: Dextroamphetamine/Amphetamine XR 10 MG CAP.ER.24H 30 MG PO (09:26)
[2022-11-26] MEDS: Thiamine HCL 100 MG TABLET PO (09:27)
[2022-11-26] MEDS: clonazePAM 1 MG TABLET PO ×3 (09:27→20:50)
[2022-11-26] MEDS: Gabapentin 300 MG CAPSULE PO ×3 (09:27→20:51)
[2022-11-26] MEDS: Ferrous Sulfate 324 MG TABLET.DR 325 MG PO (09:27)
[2022-11-26] MEDS: OXcarbazepine 300 MG TABLET PO (09:27)
[2022-11-26] MEDS: ARIPiprazole 2 MG TABLET PO (09:27)
--- NOTE | 2022-11-26 12:21 | HO.PSYCHPN ---
Subjective Subjective Date of Service: 11/26/22 Reason For Visit: PTSD, Intermittent Explosive D/O, MDD, Polysubstan Subjective Notes: Conditional Voluntary Healthcare Proxy: No Guardianship: No Medical Problems Affecting Mental Status: No Interim History: Denies perceptual alterations, deneis depressive sx. Reports anxiety. Discussed hx of IED, schizoaffective sx, PTSD and work with Dr. Rojas at [facility]. Discussed agents he has worked with, SE-trileptal, mirtazapine, abilify, citalopram, prozac, haldol Team report pt was verbally abusive and targeting of staff and peers this evening with inappropriate comments, racist comments and targeting language focused on others issues for hospitalization. Pt very critical of team efforts to assist him and others with poor boundary observation. Medication Compliance: Yes Side effects from medications: No Attending Groups: Intermittent Review of Systems Acute medical concerns: No Medical Review of Systems: unchanged Mental Status Exam Mental Status Exam Patient Appearance: Appropriate Patient Orientation: Person, Place, Time and Situation Level of Consciousness: Alert Patient Behavior: Talkative and Good Eye Contact Mood Description: Apprehensive Affect Description: Flat Ability to Follow Directions: Good Speech Pattern: Spontaneous Speech Memory Description: Episodic Impaired Hallucinations: Auditory Delusions: Present Thought Process: Rumination Thought Content: positive for Perseveration Depressive Symptoms: Increased Anxiety, Insomnia, Difficulty Sleeping, Feelings of Worthlessness and Difficulty Concentrating Judgement: Good Diagnostics Vital Signs (24Hr): Vital Signs - 24 hr 11/25/22 20:55 11/26/22 09:23 Temperature 97.2 F 98.3 F Pulse Rate 76 60 Respiratory Rate 16 Blood Pressure 125/71 126/64 Pulse Oximetry 99 Oxygen Delivery Method Room Air BMI result Body Mass Index 26.6 Labs Results: 11/24/22 15:23 11/24/22 15:23 Labs: Laboratory Results - last 48 hr 11/24/22 11/24/22 11/24/22 15:23 15:23 15:23 WBC 9.5 RBC 4.75 Hgb 13.6 L Hct 40.7 L MCV 85.7 MCH 28.6 MCHC 33.4 RDW 14.0 Plt Count 194 MPV 8.7 L Immature Gran % (Auto) 0.2 Neut % (Auto) 69.3 Lymph % (Auto) 21.5 [place] % (Auto) 7.0 Eos % (Auto) 1.7 Baso % (Auto) 0.3 Lymph # (Auto) 2.0 [place] # (Auto) 0.7 Eos # (Auto) 0.2 Baso # (Auto) 0.0 Abs Immat Gran (auto) 0.02 Absolute Neuts (auto) 6.6 Absolute Nucleated RBC 0.000 Nucleated RBC % (auto) 0.0 Sodium 138 Potassium 3.8 Chloride 104 Carbon Dioxide 28 Anion Gap 10 L BUN 18 H Creatinine 0.80 Estim Creat Clear Calc 112.9 Estimated GFR > 60 Random Glucose 111 Estimat Average Glucose Hemoglobin A1c % Calcium 8.6 Magnesium Total Bilirubin 0.7 Direct Bilirubin 0.2 AST 35 ALT 68 H Alkaline Phosphatase 88 Total Protein 6.5 Albumin 3.8 Triglycerides Cholesterol LDL Cholesterol, Calc HDL Cholesterol Lipase 35 Vitamin B12 Folate TSH Free T4 Urine Color Urine Appearance Urine pH Ur Specific [place] Urine Protein Urine Glucose (UA) Urine Ketones Urine Blood Urine Nitrite Ur Leukocyte Esterase Urine Opiates Screen Urine Fentanyl Screen Ur Barbiturates Screen Ur Phencyclidine Scrn Ur Amphetamines Screen U Benzodiazepines Scrn Urine Cocaine Screen U Marijuana (THC) Screen COVID-19 (JENNIFER) Negative COVID-19 Clin Com See Note 11/24/22 11/24/22 11/25/22 15:28 15:28 07:40 WBC RBC Hgb Hct MCV MCH MCHC RDW Plt Count MPV Immature Gran % (Auto) Neut % (Auto) Lymph % (Auto) [place] % (Auto) Eos % (Auto) Baso % (Auto) Lymph # (Auto) [place] # (Auto) Eos # (Auto) Baso # (Auto) Abs Immat Gran (auto) Absolute Neuts (auto) Absolute Nucleated RBC Nucleated RBC % (auto) Sodium Potassium Chloride Carbon Dioxide Anion Gap BUN Creatinine Estim Creat Clear Calc Estimated GFR Random Glucose Estimat Average Glucose 97 Hemoglobin A1c % 5.0 Calcium Magnesium Total Bilirubin Direct Bilirubin AST ALT Alkaline Phosphatase Total Protein Albumin Triglycerides Cholesterol LDL Cholesterol, Calc HDL Cholesterol Lipase Vitamin B12 Folate TSH Free T4 Urine Color Yellow Urine Appearance Clear Urine pH 6.0 Ur Specific [place] 1.020 Urine Protein Negative Urine Glucose (UA) Negative Urine Ketones Negative Urine Blood Negative Urine Nitrite Negative Ur Leukocyte Esterase Negative Urine Opiates Screen POSITIVE H Urine Fentanyl Screen POSITIVE H Ur Barbiturates Screen Not Detected Ur Phencyclidine Scrn Not Detected Ur Amphetamines Screen Not Detected U Benzodiazepines Scrn Not Detected Urine Cocaine Screen POSITIVE H U Marijuana (THC) Screen POSITIVE H COVID-19 (JENNIFER) COVID-19 Clin Com 11/25/22 11/25/22 07:40 07:40 WBC RBC Hgb Hct MCV MCH MCHC RDW Plt Count MPV Immature Gran % (Auto) Neut % (Auto) Lymph % (Auto) [place] % (Auto) Eos % (Auto) Baso % (Auto) Lymph # (Auto) [place] # (Auto) Eos # (Auto) Baso # (Auto) Abs Immat Gran (auto) Absolute Neuts (auto) Absolute Nucleated RBC Nucleated RBC % (auto) Sodium Potassium Chloride Carbon Dioxide Anion Gap BUN Creatinine Estim Creat Clear Calc Estimated GFR Random Glucose Estimat Average Glucose Hemoglobin A1c % Calcium Magnesium 2.1 Total Bilirubin Direct Bilirubin AST ALT Alkaline Phosphatase Total Protein Albumin Triglycerides 52 Cholesterol 129 LDL Cholesterol, Calc 82 HDL Cholesterol 37 Lipase Vitamin B12 535 Folate 11.0 TSH 0.88 Free T4 1.04 Urine Color Urine Appearance Urine pH Ur Specific [place] Urine Protein Urine Glucose (UA) Urine Ketones Urine Blood Urine Nitrite Ur Leukocyte Esterase Urine Opiates Screen Urine Fentanyl Screen Ur Barbiturates Screen Ur Phencyclidine Scrn Ur Amphetamines Screen U Benzodiazepines Scrn Urine Cocaine Screen U Marijuana (THC) Screen COVID-19 (JENNIFER) COVID-19 Clin Com Imaging Radiology Impressions: ITS Impressions Soft Tissue Neck CT 11/24/22 09:14 IMPRESSION: 1. There is no cervical lymphadenopathy and no masses are demonstrated in the neck. 2. No radiodense/metallic objects are demonstrated in the visualized head, neck and upper chest. 3. Evaluation of the vessels is slightly suboptimal due to lack of intravenous contrast. Chest X-Ray 11/25/22 11:41 IMPRESSION: No radiographic evidence of acute infiltrates or failure. Medications Medications Current Medications Acetaminophen (Acetaminophen 325 Mg Tablet) 650 mg PO Q6H PRN PRN Reason: Headache/Pain Mild Scale (1-3) Al Hydroxide/Mg Hydroxide (Magnesium Hydrox/Alum Hydrox 30 Ml Oral.Susp) 30 ml PO Q6H PRN PRN Reason: Heartburn/Nausea Amphetamine/Dextroamphetamine (Dextroamphetamine/Amphetamine Xr 10 Mg Cap.Er.24h) 30 mg PO DAILY TITO Last Admin: 11/26/22 09:26 Dose: 30 mg Amphetamine/Dextroamphetamine (Amphetamine Mixed Salts 20 Mg Tablet) 30 mg PO 1300 [facility] Last Admin: 11/25/22 12:29 Dose: 30 mg Aripiprazole (Aripiprazole 2 Mg Tablet) 2 mg PO DAILY [facility] Last Admin: 11/26/22 09:27 Dose: 2 mg Clonazepam (Clonazepam 1 Mg Tablet) 1 mg PO TID [facility] Ferrous Sulfate (Ferrous Sulfate 324 Mg Tablet.Dr) 325 mg PO DAILY [facility] Last Admin: 11/26/22 09:27 Dose: 324 mg Gabapentin (Gabapentin 300 Mg Capsule) 300 mg PO TID [facility] Guaifenesin/Dextromethorphan (Guaifenesin Dm 600/30 1 Tab Tab.Er.12h) 1 tab PO BID PRN PRN Reason: cough,congestion Hydroxyzine HCl (Hydroxyzine Hcl 50 Mg Tablet) 50 mg PO TID PRN PRN Reason: Anxiety Hydroxyzine HCl (Hydroxyzine Hcl 25 Mg Tablet) 25 mg PO Q6H PRN PRN Reason: Anxiety Magnesium Hydroxide (Milk Of Magnesia 30 Ml Oral.Susp) 30 ml PO DAILY PRN PRN Reason: Constipation Melatonin (Melatonin 3 Mg Tablet) 9 mg PO BEDTIME PRN PRN Reason: sleep Methadone HCl (Methadone Hcl 20 Mg/2 Ml Oral.Conc) 70 mg PO DAILY [facility] Last Admin: 11/26/22 09:25 Dose: 70 mg Mirtazapine (Mirtazapine 30 Mg Tablet) 30 mg PO BEDTIME [facility] Last Admin: 11/25/22 21:07 Dose: 30 mg Oxcarbazepine (Oxcarbazepine 300 Mg Tablet) 300 mg PO DAILY [facility] Last Admin: 11/26/22 09:27 Dose: 300 mg Oxcarbazepine (Oxcarbazepine 300 Mg Tablet) 600 mg PO BEDTIME [facility] Last Admin: 11/25/22 21:07 Dose: 600 mg Pharmacy Consult (Consult Rx Perform Med Rec) 1 each MISCELLANE ONCE PRN PRN Reason: Consult order Prazosin HCl (Prazosin Hcl 1 Mg Capsule) 1 mg PO BEDTIME [facility]; Protocol Last Admin: 11/25/22 21:06 Dose: 1 mg Thiamine HCl (Thiamine Hcl 100 Mg Tablet) 100 mg PO DAILY [facility] Last Admin: 11/26/22 09:27 Dose: 100 mg Allergies Allergies Allergy/AdvReac Type Severity Reaction Status Date / Time trazodone AdvReac Intermediate Priaprism Verified 06/25/22 09:51 Assessment & Plan Assessment & Plan (1) MDD (major depressive disorder), recurrent episode, severe: Status: Acute Code(s): F33.2 - Major depressive disorder, recurrent severe without psychotic features (2) Post traumatic stress disorder (PTSD): Status: Acute Code(s): F43.10 - Post-traumatic stress disorder, unspecified (3) Opioid dependence on agonist therapy: Status: Acute Code(s): F11.20 - Opioid dependence, uncomplicated (4) Substance abuse: Status: Acute Code(s): F19.10 - Other psychoactive substance abuse, uncomplicated Plan 47 yo male, hx of PTSD, recurrent major depression, opiate use disorder, polysubstance use disorder. Injected heroin into his neck at a local service station with concern he broke the needle in his neck, called EMS and verbalized SI once coming to the hospital. Plan: Review of regime, changes made. --Mucinex prn --Adderall XR 30 a.m. --Adderall IR 30 1300 -Ferrous sulfate daily 11/26/22 Increase Gabapentin to tid Increase Klonopin to tid Patient educated on: medication risk/benefits and therapeutic strategies Informed Consent: understands and further education needed Reason for contiued inpatient stay Substantial Risk for: rapid decompensation Time Spent With Patient Time: Total time managing care of this patient today __20__ minutes.
[2022-11-26] MEDS: Amphetamine Mixed Salts 20 MG TABLET 30 MG PO (12:55)
[2022-11-26 18:00] VITALS: BP 122/68; PULSE 78; RESP 16; TEMP 36; O2SAT 98
[2022-11-26] MEDS: OXcarbazepine 300 MG TABLET 600 MG PO (20:50)
[2022-11-26] MEDS: Prazosin HCL 1 MG CAPSULE PO (20:50)
[2022-11-26] MEDS: Mirtazapine 30 MG TABLET PO (20:50)
[2022-11-27 06:00] VITALS: BP 135/69; PULSE 74; RESP 18; TEMP 36.7; O2SAT 99
[2022-11-27] MEDS: Dextroamphetamine/Amphetamine XR 10 MG CAP.ER.24H 30 MG PO (08:19)
[2022-11-27] MEDS: Ferrous Sulfate 324 MG TABLET.DR 325 MG PO (08:19)
[2022-11-27] MEDS: OXcarbazepine 300 MG TABLET PO (08:20)
[2022-11-27] MEDS: Gabapentin 300 MG CAPSULE PO ×2 (08:20→14:10)
[2022-11-27] MEDS: Thiamine HCL 100 MG TABLET PO (08:20)
[2022-11-27] MEDS: clonazePAM 1 MG TABLET PO ×2 (08:20→14:10)
[2022-11-27] MEDS: methADONE HCl 20 MG/2 ML ORAL.CONC 70 MG PO (08:20)
[2022-11-27] MEDS: ARIPiprazole 2 MG TABLET PO (08:20)
[2022-11-27] MEDS: Amphetamine Mixed Salts 20 MG TABLET 30 MG PO (13:10)
--- NOTE | 2022-11-27 18:32 | P.DS_ITS ---
DS: Providers Provider Date of Service: 11/27/22 Date of admission: 11/24/22 17:24 Date of discharge: 11/27/22 Primary care physician: Eulalio Physician Admitting clinician: Liliana Rizzo Attending physician on admission: Jonathon Moura Attending physician on discharge: Jonathon Moura Discharging clinician: Liliana Rizzo DS: Diagnosis Discharge Diagnosis (1) MDD (major depressive disorder), recurrent episode, severe: Status: Acute (2) Post traumatic stress disorder (PTSD): Status: Acute (3) Opioid dependence on agonist therapy: Status: Acute (4) Substance abuse: Status: Acute DS: Medications Discharge Medications Home Medications: Home Medications Medication Instructions Recorded Confirmed methadone 10 mg/mL oral concentrate 70 mg PO DAILY 11/24/22 11/24/22 Previous Rx's Medication Instructions Recorded aripiprazole 2 mg tablet (Abilify) 2 mg PO DAILY #7 tabs 11/27/22 clonazepam 1 mg tablet (Klonopin) 1 mg PO DAILY #7 tabs 11/27/22 dextroamphetamine-amphetamine 10 10 mg PO DAILY #7 tabs 11/27/22 mg tablet (Adderall) dextroamphetamine-amphetamine 20 30 mg PO 1300 #7 tabs 11/27/22 mg tablet dextroamphetamine-amphetamine ER 30 mg PO DAILY #7 caps 11/27/22 10 mg 24hr capsule,extend release (Adderall XR) ferrous sulfate 324 mg (65 mg 325 mg PO DAILY #7 tabs 11/27/22 iron) tablet,delayed release gabapentin 300 mg capsule 300 mg PO TID #21 caps 11/27/22 hydroxyzine HCl 50 mg tablet 50 mg PO TID PRN Anxiety #21 tabs 11/27/22 melatonin 10 mg capsule 10 mg PO BEDTIME PRN sleep #7 caps 11/27/22 mirtazapine 30 mg tablet 30 mg PO BEDTIME #7 tabs 11/27/22 oxcarbazepine 300 mg tablet 300 mg PO DAILY #7 tabs 11/27/22 oxcarbazepine 300 mg tablet 600 mg PO BEDTIME #14 tabs 11/27/22 prazosin 1 mg capsule 1 mg PO BEDTIME #7 caps 11/27/22 thiamine mononitrate (vit B1) 100 100 mg PO DAILY #7 tabs 11/27/22 mg tablet Mental Status Exam Mental Status Exam Patient Appearance: Appropriate Patient Orientation: Person, Place, Time and Situation Level of Consciousness: Alert Patient Behavior: Talkative and Good Eye Contact Mood Description: Apprehensive Affect Description: Flat Patient Cognition Impaired: No Ability to Follow Directions: Good Speech Pattern: Spontaneous Speech Memory Description: Episodic Impaired Thought Process: Intact Thought Content: positive for Intact Depressive Symptoms: Increased Anxiety, Difficulty Sleeping and Feelings of Worthlessness Judgement: Good Data Data Completed and Pending Completed studies during hospitalization [Text1]: 11/24/22 11/24/22 11/24/22 15:23 15:23 15:23 WBC 9.5 RBC 4.75 Hgb 13.6 L Hct 40.7 L MCV 85.7 MCH 28.6 MCHC 33.4 RDW 14.0 Plt Count 194 MPV 8.7 L Immature Gran % (Auto) 0.2 Neut % (Auto) 69.3 Lymph % (Auto) 21.5 [place] % (Auto) 7.0 Eos % (Auto) 1.7 Baso % (Auto) 0.3 Lymph # (Auto) 2.0 [place] # (Auto) 0.7 Eos # (Auto) 0.2 Baso # (Auto) 0.0 Abs Immat Gran (auto) 0.02 Absolute Neuts (auto) 6.6 Absolute Nucleated RBC 0.000 Nucleated RBC % (auto) 0.0 Sodium 138 Potassium 3.8 Chloride 104 Carbon Dioxide 28 Anion Gap 10 L BUN 18 H Creatinine 0.80 Estim Creat Clear Calc 112.9 Estimated GFR > 60 Random Glucose 111 Estimat Average Glucose Hemoglobin A1c % Calcium 8.6 Magnesium Total Bilirubin 0.7 Direct Bilirubin 0.2 AST 35 ALT 68 H Alkaline Phosphatase 88 Total Protein 6.5 Albumin 3.8 Triglycerides Cholesterol LDL Cholesterol, Calc HDL Cholesterol Lipase 35 Vitamin B12 Folate TSH Free T4 Urine Color Urine Appearance Urine pH Ur Specific [place] Urine Protein Urine Glucose (UA) Urine Ketones Urine Blood Urine Nitrite Ur Leukocyte Esterase Urine Opiates Screen Urine Fentanyl Screen Ur Barbiturates Screen Ur Phencyclidine Scrn Ur Amphetamines Screen U Benzodiazepines Scrn Urine Cocaine Screen U Marijuana (THC) Screen COVID-19 (JENNIFER) Negative COVID-19 Clin Com See Note 11/24/22 11/24/22 11/25/22 15:28 15:28 07:40 WBC RBC Hgb Hct MCV MCH MCHC RDW Plt Count MPV Immature Gran % (Auto) Neut % (Auto) Lymph % (Auto) [place] % (Auto) Eos % (Auto) Baso % (Auto) Lymph # (Auto) [place] # (Auto) Eos # (Auto) Baso # (Auto) Abs Immat Gran (auto) Absolute Neuts (auto) Absolute Nucleated RBC Nucleated RBC % (auto) Sodium Potassium Chloride Carbon Dioxide Anion Gap BUN Creatinine Estim Creat Clear Calc Estimated GFR Random Glucose Estimat Average Glucose 97 Hemoglobin A1c % 5.0 Calcium Magnesium Total Bilirubin Direct Bilirubin AST ALT Alkaline Phosphatase Total Protein Albumin Triglycerides Cholesterol LDL Cholesterol, Calc HDL Cholesterol Lipase Vitamin B12 Folate TSH Free T4 Urine Color Yellow Urine Appearance Clear Urine pH 6.0 Ur Specific [place] 1.020 Urine Protein Negative Urine Glucose (UA) Negative Urine Ketones Negative Urine Blood Negative Urine Nitrite Negative Ur Leukocyte Esterase Negative Urine Opiates Screen POSITIVE H Urine Fentanyl Screen POSITIVE H Ur Barbiturates Screen Not Detected Ur Phencyclidine Scrn Not Detected Ur Amphetamines Screen Not Detected U Benzodiazepines Scrn Not Detected Urine Cocaine Screen POSITIVE H U Marijuana (THC) Screen POSITIVE H COVID-19 (JENNIFER) COVID-[place] 11/25/22 11/25/22 07:40 07:40 WBC RBC Hgb Hct MCV MCH MCHC RDW Plt Count MPV Immature Gran % (Auto) Neut % (Auto) Lymph % (Auto) [place] % (Auto) Eos % (Auto) Baso % (Auto) Lymph # (Auto) [place] # (Auto) Eos # (Auto) Baso # (Auto) Abs Immat Gran (auto) Absolute Neuts (auto) Absolute Nucleated RBC Nucleated RBC % (auto) Sodium Potassium Chloride Carbon Dioxide Anion Gap BUN Creatinine Estim Creat Clear Calc Estimated GFR Random Glucose Estimat Average Glucose Hemoglobin A1c % Calcium Magnesium 2.1 Total Bilirubin Direct Bilirubin AST ALT Alkaline Phosphatase Total Protein Albumin Triglycerides 52 Cholesterol 129 LDL Cholesterol, Calc 82 HDL Cholesterol 37 Lipase Vitamin B12 535 Folate 11.0 TSH 0.88 Free T4 1.04 Urine Color Urine Appearance Urine pH Ur Specific [place] Urine Protein Urine Glucose (UA) Urine Ketones Urine Blood Urine Nitrite Ur Leukocyte Esterase Urine Opiates Screen Urine Fentanyl Screen Ur Barbiturates Screen Ur Phencyclidine Scrn Ur Amphetamines Screen U Benzodiazepines Scrn Urine Cocaine Screen U Marijuana (THC) Screen COVID-19 (JENNIFER) COVID-[place] 11/26/22 14:05 Sputum - Expectorated Gram Stain - Final 11/26/22 14:05 Sputum - Expectorated Sputum Culture - Final 11/25/22 11:15 Sputum - Expectorated Gram Stain - Final 11/25/22 11:15 Sputum - Expectorated Sputum Culture - Final Imaging Diagnostic Imaging Impressions Soft Tissue Neck CT 11/24/22 09:14 IMPRESSION: 1. There is no cervical lymphadenopathy and no masses are demonstrated in the neck. 2. No radiodense/metallic objects are demonstrated in the visualized head, neck and upper chest. 3. Evaluation of the vessels is slightly suboptimal due to lack of intravenous contrast. Chest X-Ray 11/25/22 11:41 IMPRESSION: No radiographic evidence of acute infiltrates or failure. DS: Summary Hospital Course Hospital Course: Admission to adult psychiatry for exacerbation of Opiate Use Disorder, Polysubstance Abuse, PTSD, Intermittent Explosive Disorder, Major Depression, Recurrent, Severe, ADHD. Medications were re-established. CSS program search was initiated. Deng exhibited characterological symptoms in the milieu where other patients were targeted and verbally abused by him. Deng made racial comments, comments about patients symptoms and plans of care. Deng ignored limits and boundaries set by the team. As a result, discharge was planned. One week of medication was sent in and pt was given a list of resources team had been working on for application for his admission to a [facility]. Time spent discussing smoking cessation with patient: 3 to 10 minutes Status at Discharge Functional status at discharge: independent ambulation Overall status at discharge: patient is back to baseline Time Spent with Patient Time attestation: Total time managing care of this patient today __40__ minutes. Time spent: Greater than 30 minutes Discharge Plan Discharge Anticipated Discharge Date/Time: 11/27/22 14:43 Patient Disposition: [facility] Discharge Diagnosis: PTSD Recurrent Major Depression Opiate Use Disorder Referrals: [facility] [Other] - Tomorrow (Referral to [facility] Patient should follow-up on referral after discharge. ) [facility] [Other] - Tomorrow (Referral to [facility] Patient should follow-up on referral after discharge ) [facility] [Other] - Tomorrow (Information for patient to self-refer for CSS placement at [facility]. Patient should call daily in morning to assess for his ability to receive substance use treatment.) [facility] [Other] - Tomorrow (Information for outpatient therapy and psychiatry services. Patient to follow-up with providers to re-establish services.) [facility] [Other] - 1 Week (Walk-In Clinic) Discharge Medications: New prazosin 1 mg Capsule 1 mg PO BEDTIME Qty: 7 0RF Protocol: Hold for SBP< HOLD for SBP < : 90 hydroxyzine HCl 50 mg Tablet 50 mg PO TID PRN (Reason: Anxiety) Qty: 21 0RF oxcarbazepine 300 mg Tablet 600 mg PO BEDTIME Qty: 14 0RF oxcarbazepine 300 mg Tablet 300 mg PO DAILY Qty: 7 0RF mirtazapine 30 mg Tablet 30 mg PO BEDTIME Qty: 7 0RF dextroamphetamine-amphetamine 20 mg Tablet 30 mg PO 1300 Qty: 7 0RF Rx Instructions: Partial Fill upon patient request. gabapentin 300 mg Capsule 300 mg PO TID Qty: 21 0RF dextroamphetamine-amphetamine [Adderall XR] 10 mg Capsule,Extended Release 24hr 30 mg PO DAILY Qty: 7 0RF Rx Instructions: Partial Fill upon patient request. aripiprazole [Abilify] 2 mg Tablet 2 mg PO DAILY Qty: 7 0RF ferrous sulfate 324 mg (65 mg iron) Tablet,Delayed Release (Dr/Ec) 325 mg PO DAILY Qty: 7 0RF thiamine mononitrate (vit B1) 100 mg Tablet 100 mg PO DAILY Qty: 7 0RF clonazepam [Klonopin] 1 mg tablet 1 mg PO DAILY Qty: 7 0RF dextroamphetamine-amphetamine [Adderall] 10 mg tablet 10 mg PO DAILY Qty: 7 0RF Rx Instructions: Partial Fill upon patient request. melatonin 10 mg capsule 10 mg PO BEDTIME PRN (Reason: sleep) Qty: 7 0RF Continued methadone 10 mg/mL Concentrate 70 mg PO DAILY Discontinued aripiprazole [Abilify] 2 mg Tablet 2 mg PO DAILY Qty: 30 0RF thiamine mononitrate (vit B1) 100 mg Tablet 100 mg PO DAILY Qty: 30 1RF prazosin 1 mg Capsule 1 mg PO BEDTIME 30 Days Qty: 30 1RF Protocol: Hold for SBP< HOLD for SBP < : 90 Label Comments: last picked up 05/23/2022 per pharmacy hydroxyzine HCl 50 mg Tablet 50 mg PO TID PRN (Reason: Anxiety) 30 Days Qty: 90 1RF Label Comments: last picked up in February per pharmacy mirtazapine 30 mg Tablet 30 mg PO BEDTIME 30 Days Qty: 30 1RF Label Comments: last picked up 05/23/2022 per pharmacy melatonin 10 mg tablet 10 mg PO BEDTIME PRN (Reason: sleep) 30 Days Qty: 30 1RF Label Comments: never picked up per pharmacy dextroamphetamine-amphetamine [Adderall XR] 30 mg capsule,extended release 24hr 30 mg PO BID Qty: 60 0RF Rx Instructions: Partial Fill upon patient request. oxcarbazepine 300 mg tablet 1 tab PO DAILY oxcarbazepine 600 mg tablet 1 tab PO BEDTIME clonazepam 0.5 mg tablet 1 tab PO BID PRN (Reason: anxiety) gabapentin 300 mg Capsule 300 mg PO BID clonazepam 1 mg tablet 1 mg PO DAILY Discharge Orders: Discharge Order (Routine); Ordered 11/27/22 Ordered By: Liliana Rizzo Diet: Advance to usual diet Activity on Discharge: As tolerated Stand Alone Forms: Patient Portal Discharge page, Community Support Care Plan Goals: Maintain mood and safe behaviors Take medications as directed Practice Coping Skills Follow up with out patient providers/contacts Health Concerns: Stable mood and behaviors Plan of Treatment: Follow up with out patient providers Take medications as directed Assessment: non psychotic, non manic, non suicidal, non homicidal Discharge Date/Time: 11/27/22 14:15
== END 2022-11-27 14:15 | disposition home or self-care (01) | DRG 751 ==
LOC: HO.ED 17:02 → HO.PM5 17:46
PROVIDERS: Admitting Provider Psychiatry & Neurology Psychiatry; Emergency Provider Emergency Medicine; Visit Provider Clinical Nurse Specialist Psychiatric/Mental Health, Adult
DX: F33.2 Major depressive disorder, recurrent severe without psychotic features (principal); F11.20 Opioid dependence, uncomplicated; F17.210 Nicotine dependence, cigarettes, uncomplicated; F63.81 Intermittent explosive disorder; F43.10 Post-traumatic stress disorder, unspecified; Z71.6 Tobacco abuse counseling; Z20.822 Contact with and (suspected) exposure to COVID-19; Z59.02 Unsheltered homelessness; Z88.8 Allergy status to other drugs, medicaments and biological substances; Z79.899 Other long term (current) drug therapy
CPT/HCPCS: 36415; 70490; 71046; 80048; 80061; 80076; 80307; 81003; 82607; 82746; 83036; 83690; 83735; 84439; 84443; 85025; 87070; 87205; 87635; 93005; 99285; S9485